=== PATIENT | female | born 1960 | race Caucasian/White ===

== ENCOUNTER 2017-05-06 20:49 | Emergency (ER) | payer MEDICAID ==
[2017-05-06 20:54] VITALS: BP 120/65
--- NOTE | 2017-05-06 21:20 | ED Physician Documentation ---
History of Present Illness - Stated complaint Stated Complaint: FOOT PX - Chief complaint Chief Complaint: Ext Problem - History obtained from History obtained from: Patient - History of Present Illness Timing: How many weeks ago (1) Pain level max: 6 Pain level now: 6 Improved by: walking boot Worsened by: walking - Additonal information Additional information: has had pain in the L foot/ankle for the past year. is supposed to be in a walking boot, but was not wearing it today. felt "3 cracks" and came to the ED. 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 : Other HEENT: Other Psych: None Musculoskeletal: Osteoarthritis Derm: None - Past Surgical History Past Surgical History: Yes General: Cholecystectomy, Appendectomy, Colonoscopy Ortho: Arthroscopic surgery, Carpal Tunnel surgery /DATA CONVERSION OPERATOR: Tubal ligation, Hysterectomy, Oophrectomy - Present Medications Home Medications: Ambulatory Orders Medication Instructions Recorded Confirmed Aspirin [Nell Chewable Aspirin] 81 mg PO DAILY 06/06/16 05/06/17 Naproxen 375 mg PO BID PRN #20 tablet 05/06/17 - Allergies Allergies/Adverse Reactions: Allergies Allergy/AdvReac Type Severity Reaction Status Date / Time ibuprofen Allergy Severe Hives Verified 05/06/17 20:55 baclofen Allergy Intermediate Rash Verified 05/06/17 20:55 cephalexin [Cephalexin] Allergy Intermediate Rash Verified 05/06/17 20:55 clarithromycin [From Biaxin] Allergy Intermediate Rash Verified 05/06/17 20:55 codeine [Codeine] Allergy Intermediate Rash Verified 05/06/17 20:55 Penicillins Allergy Intermediate Rash Verified 05/06/17 20:55 aspirin AdvReac Intermediate Nausea Verified 05/06/17 20:55 acetaminophen [From Vicodin] AdvReac Unknown Nausea Verified 05/06/17 20:55 hydrocodone bitartrate * AdvReac Unknown Nausea Verified 05/06/17 20:55 [From Vicodin] - Social History Does the pt smoke?: No Smoking Status: Former smoker Does the pt drink ETOH?: No Does the pt have substance abuse?: No - Immunizations Immunizations are current?: Yes - POLST Patient has POLST: No PD ED PE NORMAL - Vitals Vital signs reviewed: Yes - General General: Alert and oriented X 3, No acute distress - Derm Derm: Warm and dry - Extremities Extremities: Other (L ankle - diffuse TTP over the foot and ankle. NVI. No swelling. ) - Neuro Neuro: Alert and oriented X 3 - Psych Psych: Normal mood, Normal affect Results - Vitals Vitals: Vital Signs - 24 hr 05/06/17 20:51 Temperature 36.2 C L Heart Rate 81 Respiratory 18 Rate Blood Pressure 120/65 O2 Saturation 99 Oxygen O2 Source Room air - Rads (name of study) L ankle xray Radiology: Prelim report reviewed, EMP read contemporaneously, See rad report ( Ankle swelling. . No fracture. Normal alignment. ) L foot xray Radiology: Prelim report reviewed, EMP read contemporaneously, See rad report ( Healed fracture of the left second proximal phalanx diaphysis. No new fractures. . Normal soft tissue and alignment. ) PD MEDICAL DECISION MAKING - ED course Complexity details: reviewed results, re-evaluated patient, considered differential, d/w patient ED course: Patient is a 56-year-old female who presents to the emergency department with left foot and ankle pain. She does have a walking boot and is using this at home. Multiple medication allergies, but states that she can use Naprosyn. Will place her on this for home and follow-up with her doctor. No acute findings on x-ray. Patient counseled regarding signs and symptoms for which I believe and urgent re-evaluation would be necessary. Patient with good understanding of and agreement to plan and is comfortable going home at this time This document was made in part using voice recognition software. While efforts are made to proofread this document, sound alike and grammatical errors may occur. Departure - Departure Disposition: 01 Home, Self Care Clinical Impression: Left ankle sprain Qualifiers: Encounter type: initial encounter Involved ligament of ankle: unspecified ligament Qualified Code(s): S93.402A - Sprain of unspecified ligament of left ankle, initial encounter Condition: Good Instructions: ED Sprain Ankle W X Ray Follow-Up: Edilberto Goetz MD [Primary Care Provider] - Within 1 week Prescriptions: Naproxen 375 mg PO BID PRN #20 tablet PRN Reason: ankle pain Comments: Your xrays are normal tonight. Continue to use your walking boot at home. This should improve over the next few days. Discharge Date/Time: 05/06/17 22:21
--- NOTE | 2017-05-06 21:59 | XRAY Preliminary Report ---
Exam: XR Ankle 3 View LT IMPRESSION: 1. Ankle swelling. 2. No fracture. Normal alignment. [facility] SITE ID: [id number]
--- NOTE | 2017-05-06 22:01 | XRAY Preliminary Report ---
Exam: XR Foot 3 View LT IMPRESSION: 1. Healed fracture of the left second proximal phalanx diaphysis. No new fractures. 2. Normal soft tissue malalignment. [facility] SITE ID: [id number]
--- NOTE | 2017-05-06 22:02 | XRAY Report ---
EXAM: LEFT ANKLE RADIOGRAPHY EXAM DATE: 05/06/2017 09:49 PM. CLINICAL HISTORY: L ankle pain s/p fall. COMPARISON: None. TECHNIQUE: 3 views. FINDINGS: Bones: Normal. No fractures or bone lesions. Joints: Normal. No effusion. No subluxations. The ankle mortise is normally aligned. Soft Tissues: Ankle swelling noted. IMPRESSION: 1. Ankle swelling. 2. No fracture. Normal alignment. [facility] Referring Provider Line: [phone] SITE ID: [id number]
--- NOTE | 2017-05-06 22:06 | XRAY Report ---
EXAM: LEFT FOOT RADIOGRAPHY EXAM DATE: 05/06/2017 09:50 PM. CLINICAL HISTORY: Left foot pain status post fall. COMPARISON: 03/23/2016. TECHNIQUE: 3 views. FINDINGS: Bones: Healed fracture of the proximal left second phalanx diaphysis. No new fractures are noted. Joints: Normal. No subluxations. Soft Tissues: Normal. No soft tissue swelling. IMPRESSION: 1. Healed fracture of the left second proximal phalanx diaphysis. No new fractures. 2. Normal soft tissue and alignment. [facility] Referring Provider Line: [phone] SITE ID: [id number]
[2017-05-06] MEDS ORDERED: NAPROXEN 250 MG TABLET PO STA (22:09)
[2017-05-06] MEDS ORDERED: NAPROXEN 250 MG TABLET PO ONE ×2 (22:10→22:11)
== END 2017-05-06 22:21 | disposition home or self-care (01) ==
LOC: ED 20:49
DX: S93.402A Sprain of unspecified ligament of left ankle, initial encounter (principal); X58.XXXA Exposure to other specified factors, initial encounter; Z87.891 Personal history of nicotine dependence; Z79.82 Long term (current) use of aspirin
CPT/HCPCS: 73610; 73630; 99282; 99283; A9270

== ENCOUNTER 2017-06-29 20:52 | Emergency (ER) | payer MEDICAID ==
[2017-06-29 21:04] VITALS: BP 106/68
[2017-06-29] MEDS ORDERED: NAPROXEN 250 MG TABLET PO STA (22:13)
--- NOTE | 2017-06-29 22:14 | ED Physician Documentation ---
History of Present Illness - Stated complaint Stated Complaint: RIB PX - Chief complaint Chief Complaint: General - History obtained from History obtained from: Patient, Friend - History of Present Illness Timing: How many days ago (3) Pain level max: 8 Pain level now: 8 Improved by: rest Worsened by: movement, palpation - Additonal information Additional information: Patient is a 56-year-old female who presents to the emergency department with right rib pain after moving laundry the other day. States saw her PCP and was prescribed Flexeril, but this is not helping. No dyspnea. No cough. Feels that there is swelling in that area now. 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 : Other HEENT: Other Psych: None Musculoskeletal: Osteoarthritis Derm: None - Past Surgical History Past Surgical History: Yes General: Cholecystectomy, Appendectomy, Colonoscopy Ortho: Arthroscopic surgery, Carpal Tunnel surgery /ULTRASONIC HAND SOLDERER: Tubal ligation, Hysterectomy, Oophrectomy - Present Medications Home Medications: Ambulatory Orders Medication Instructions Recorded Confirmed Cyclobenzaprine HCl 5 mg PO QPM PRN 06/29/17 06/29/17 Naproxen [Naprosyn] 500 mg PO BID PRN #30 tablet 06/29/17 - Allergies Allergies/Adverse Reactions: Allergies Allergy/AdvReac Type Severity Reaction Status Date / Time ibuprofen Allergy Severe Hives Verified 06/29/17 21:04 baclofen Allergy Intermediate Rash Verified 06/29/17 21:04 cephalexin [Cephalexin] Allergy Intermediate Rash Verified 06/29/17 21:04 clarithromycin [From Biaxin] Allergy Intermediate Rash Verified 06/29/17 21:04 codeine [Codeine] Allergy Intermediate Rash Verified 06/29/17 21:04 Penicillins Allergy Intermediate Rash Verified 06/29/17 21:04 aspirin AdvReac Intermediate Nausea Verified 06/29/17 21:04 acetaminophen [From Vicodin] AdvReac Unknown Nausea Verified 06/29/17 21:04 hydrocodone bitartrate * AdvReac Unknown Nausea Verified 06/29/17 21:04 [From Vicodin] - Social History Does the pt smoke?: No Smoking Status: Former smoker Does the pt drink ETOH?: No Does the pt have substance abuse?: No - Immunizations Immunizations are current?: Yes - POLST Patient has POLST: No PD ED PE NORMAL - Vitals Vital signs reviewed: Yes - General General: Alert and oriented X 3, No acute distress - HEENT HEENT: Moist mucous membranes - Neck Neck: Supple, no meningeal sign - Cardiac Cardiac: RRR, Strong equal pulses - Respiratory Respiratory: No respiratory distress, Clear bilaterally, Other (TTP R ribs 10-12 , anterior aspect. ) - Back Back: No spinal TTP - Derm Derm: Warm and dry - Neuro Neuro: Alert and oriented X 3 - Psych Psych: Normal mood, Normal affect Results - Vitals Vitals: Vital Signs - 24 hr 06/29/17 21:00 Temperature 36.4 C L Heart Rate 82 Respiratory 16 Rate Blood Pressure 106/68 O2 Saturation 99 Oxygen O2 Source Room air - Rads (name of study) R ribs with CXR Radiology: Prelim report reviewed, EMP read contemporaneously, See rad report ( normal) PD MEDICAL DECISION MAKING - ED course Complexity details: reviewed results, re-evaluated patient, considered differential, d/w patient ED course: Patient is a 56-year-old female who presents to the emergency department with right-sided rib pain. No acute findings on x-ray. Given Naprosyn and this helped her pain. She is well-appearing, nontoxic. Afebrile. No pneumothorax. No hemothorax. We will continue supportive care and follow-up with her doctor. Patient counseled regarding signs and symptoms for which I believe and urgent re-evaluation would be necessary. Patient with good understanding of and agreement to plan and is comfortable going home at this time This document was made in part using voice recognition software. While efforts are made to proofread this document, sound alike and grammatical errors may occur. Departure - Departure Disposition: 01 Home, Self Care Clinical Impression: Contusion of rib on right side Qualifiers: Encounter type: initial encounter Qualified Code(s): S20.211A - Contusion of right front wall of thorax, initial encounter Condition: Good Instructions: ED Contusion Vs Minor Fx Rib Follow-Up: Edilberto Goetz MD [Primary Care Provider] - Within 1 week Prescriptions: Naproxen [Naprosyn] 500 mg PO BID PRN #30 tablet PRN Reason: rib pain Comments: Return if you worsen. This should improve over the next week. Discharge Date/Time: 06/29/17 23:08
[2017-06-29] MEDS ORDERED: NAPROXEN 250 MG TABLET PO ONE (22:18)
--- NOTE | 2017-06-29 22:56 | XRAY Preliminary Report ---
Exam: XR Ribs w/PA Chest RT IMPRESSION: Negative chest and right ribs. [facility] SITE ID: [id number]
--- NOTE | 2017-06-29 22:59 | XRAY Report ---
EXAM: RIGHT RIB RADIOGRAPHY EXAM DATE: 06/29/2017 10:36 PM. CLINICAL HISTORY: R sided rib pain. COMPARISON: 06/06/2016. TECHNIQUE: 1 view of the chest and 2 views of the ribs. FINDINGS: Bones: Normal. No fracture or bone lesion. Lungs: No focal opacities. No pneumothorax. No pleural effusions. Mediastinum: Heart and mediastinal contours are unremarkable. Other: None. IMPRESSION: Negative chest and right ribs. [facility] Referring Provider Line: [phone] SITE ID: [id number]
== END 2017-06-29 23:08 | disposition home or self-care (01) ==
LOC: ED 20:52
DX: S20.211A Contusion of right front wall of thorax, initial encounter (principal); X58.XXXA Exposure to other specified factors, initial encounter; Y93.89 Activity, other specified; Z87.891 Personal history of nicotine dependence
CPT/HCPCS: 71101; 99283; A9270

== ENCOUNTER 2017-08-14 20:21 | Emergency (ER) | payer MEDICAID ==
[2017-08-14 20:27] VITALS: BP 132/83
[2017-08-14] MEDS ORDERED: oxyCOD/ACETAMIN 5 MG/325 MG TABLET PO STA (20:35)
--- NOTE | 2017-08-14 20:36 | ED Physician Documentation ---
PD HPI LOWER EXT INJURY - Stated complaint Stated Complaint: LT FOOT INJ - Chief complaint Chief Complaint: Ext Problem - History obtained from History obtained from: Patient - History of Present Illness PD HPI LOW EXT INJURY LOCATION: Other (Her friend's dog leash wrapped around her ankle yesterday and pulled her and she fell and she felt popping in the left ankle and is now unable to walk or bear weight. 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 : Other HEENT: Other Psych: None Musculoskeletal: Osteoarthritis Derm: None - Past Surgical History Past Surgical History: Yes General: Cholecystectomy, Appendectomy, Colonoscopy Ortho: Arthroscopic surgery, Carpal Tunnel surgery /CUTTING MACHINE TENDER: Tubal ligation, Hysterectomy, Oophrectomy - Present Medications Home Medications: Ambulatory Orders Medication Instructions Recorded Confirmed Cyclobenzaprine HCl 5 mg PO QPM PRN 06/29/17 06/29/17 Naproxen [Naprosyn] 500 mg PO BID PRN #30 tablet 06/29/17 Naproxen 375 mg PO BID PRN #15 tablet 08/14/17 - Allergies Allergies/Adverse Reactions: Allergies Allergy/AdvReac Type Severity Reaction Status Date / Time ibuprofen Allergy Severe Hives Verified 06/29/17 21:04 baclofen Allergy Intermediate Rash Verified 06/29/17 21:04 cephalexin [Cephalexin] Allergy Intermediate Rash Verified 06/29/17 21:04 clarithromycin [From Biaxin] Allergy Intermediate Rash Verified 06/29/17 21:04 codeine [Codeine] Allergy Intermediate Rash Verified 06/29/17 21:04 Penicillins Allergy Intermediate Rash Verified 06/29/17 21:04 aspirin AdvReac Intermediate Nausea Verified 06/29/17 21:04 acetaminophen [From Vicodin] AdvReac Unknown Nausea Verified 06/29/17 21:04 hydrocodone bitartrate * AdvReac Unknown Nausea Verified 06/29/17 21:04 [From Vicodin] - Social History Does the pt smoke?: No Smoking Status: Never smoker Does the pt drink ETOH?: No Does the pt have substance abuse?: No - Immunizations Immunizations are current?: Yes - POLST Patient has POLST: No PD ED PE NORMAL - Vitals Vital signs reviewed: Yes - General General: Alert and oriented X 3, No acute distress - Extremities Extremities: Other (Left ankle: Mild tenderness over the lateral malleolus and more so over the ATFL and proximal fifth metatarsal, also some over the calcaneus, there is no proximal fibular tenderness. No deformity or swelling. Normal pedal pulses and sensation.) - Neuro Neuro: Alert and oriented X 3, Normal speech - Psych Psych: Normal mood, Normal affect Results - Vitals Vitals: Vital Signs - 24 hr 08/14/17 20:23 Temperature 36.8 C Heart Rate 81 Respiratory 16 Rate Blood Pressure 132/83 H O2 Saturation 100 Oxygen O2 Source Room air - Rads (name of study) Straight left ankle and left foot Radiology: EMP read contemporaneously (normal) Departure - Departure Disposition: 01 Home, Self Care Clinical Impression: Left ankle sprain Qualifiers: Encounter type: initial encounter Involved ligament of ankle: anterior talofibular ligament Qualified Code(s): S93.492A - Sprain of other ligament of left ankle, initial encounter Sprain of left foot Qualifiers: Encounter type: initial encounter Qualified Code(s): S93.602A - Unspecified sprain of left foot, initial encounter Condition: Good Record reviewed to determine appropriate education?: Yes Instructions: ED Sprain Ankle W X Ray Prescriptions: Naproxen 375 mg PO BID PRN #15 tablet PRN Reason: Pain Comments: Recheck with your doctor in 1 week if not better. Return if worse. Your blood pressure was elevated today on check into the emergency department. This does not mean that you have hypertension, it is a common phenomenon to come to the emergency department and have elevated blood pressure. I recommend that you see your primary care physician within the week to have it rechecked when you are feeling better. Discharge Date/Time: 08/14/17 21:10
[2017-08-14] MEDS ORDERED: HYDROcod/ACETAM 5/325 MG TABLET ONE (20:43)
[2017-08-14] MEDS ORDERED: oxyCOD/ACETAMIN 5 MG/325 MG TABLET PO ONE (20:45)
[2017-08-14] MEDS ORDERED: oxyCODONE/ACET 5/325 Prepack 4 PO STA (21:02)
[2017-08-14] MEDS ORDERED: oxyCODONE/ACET 5/325 Prepack 4 PO ONE (21:10)
--- NOTE | 2017-08-14 21:11 | XRAY Preliminary Report ---
Exam: XR ANKLE 3 VIEW LT IMPRESSION: No evidence of fracture or dislocation. [facility] SITE ID: [id number]
--- NOTE | 2017-08-14 21:12 | XRAY Preliminary Report ---
Exam: XR FOOT 3 VIEW LT IMPRESSION: No evidence of fracture or dislocation. [facility] SITE ID: [id number]
--- NOTE | 2017-08-14 21:13 | XRAY Report ---
EXAM: LEFT ANKLE RADIOGRAPHY EXAM DATE: 08/14/2017 08:53 PM. CLINICAL HISTORY: Foot/ankle inj. COMPARISON: None. TECHNIQUE: 3 views. FINDINGS: Bones: No fracture or focal bony lesion. Joints: No evidence of dislocation. Soft Tissues: No unexpected soft tissue findings. IMPRESSION: No evidence of fracture or dislocation. [facility] Referring Provider Line: [phone] SITE ID: [id number]
--- NOTE | 2017-08-14 21:15 | XRAY Report ---
EXAM: LEFT FOOT RADIOGRAPHY EXAM DATE: 08/14/2017 08:53 PM. CLINICAL HISTORY: Foot pain COMPARISON: None. TECHNIQUE: 3 views. FINDINGS: Bones: No fracture or focal bony lesion. Joints: No evidence of dislocation. Soft Tissues: No unexpected soft tissue findings. IMPRESSION: No evidence of fracture or dislocation. [facility] Referring Provider Line: [phone] SITE ID: [id number]
== END 2017-08-14 21:10 | disposition home or self-care (01) ==
LOC: ED 20:21
DX: S93.492A Sprain of other ligament of left ankle, initial encounter (principal); S93.602A Unspecified sprain of left foot, initial encounter; W23.0XXA Caught, crushed, jammed, or pinched between moving objects, initial encounter; W22.8XXA Striking against or struck by other objects, initial encounter; R03.0 Elevated blood-pressure reading, without diagnosis of hypertension
CPT/HCPCS: 73610; 73630; 99283; A9270

== ENCOUNTER 2017-09-13 18:13 | Emergency (ER) | payer MEDICAID ==
[2017-09-13] MEDS ORDERED: CYCLOBENZAPRINE 10 MG TABLET PO STA (20:08)
[2017-09-13] MEDS ORDERED: KETOROLAC 60 MG/2 ML VIAL IM STA (20:08)
[2017-09-13] MEDS ORDERED: KETOROLAC 60 MG/2 ML VIAL ONE (20:15)
[2017-09-13] MEDS ORDERED: CYCLOBENZAPRINE 10 MG TABLET PO ONE (20:15)
--- NOTE | 2017-09-13 20:18 | ED Physician Documentation ---
PD HPI LOWER EXT INJURY - Stated complaint Stated Complaint: BILAT LEG PX - Chief complaint Chief Complaint: Ext Problem - History obtained from History obtained from: Patient, Friend - History of Present Illness PD HPI LOW EXT INJURY LOCATION: Both, Lower leg Where injury occurred: Home Timing - onset: Chronic Timing - details: Gradual onset, Still present Improved by: Rest, Immobilization Worsened by: Moving, Palpating Associated symptoms: No: Weakness, Numbness, Swelling Contributing factors: No: Anticoagulated, Prosthetic joint Similar symptoms before: No diagnosis Recently seen: Not recently seen - Additional information Additional information: patient is a 57 year old female with a history of chronic pain who is presenting to the emergency department for leg pain. patient states that it is in both legs and it feels like it is knotting up. Patient states that she has a follow up with her physician next week but she needed to come in to be seen today. patient denies any trauma or any neurological deficits. Review of Systems Constitutional: denies: Fever, Chills Eyes: denies: Decreased vision, Photophobia Ears: reports: Reviewed and negative Nose: reports: Reviewed and negative Throat: reports: Reviewed and negative Cardiac: denies: Chest pain / pressure, Pedal edema, Calf pain Respiratory: denies: Dyspnea, Cough GI: reports: Reviewed and negative : denies: Unable to Void, Incontinent Musculoskeletal: reports: Extremity pain, Joint pain. 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 : Other HEENT: Other Psych: None Musculoskeletal: Osteoarthritis Derm: None - Past Surgical History Past Surgical History: Yes General: Colonoscopy Ortho: Arthroscopic surgery, Carpal Tunnel surgery /LEATHER STITCHER: Hysterectomy, Oophrectomy - Present Medications Home Medications: Ambulatory Orders Medication Instructions Recorded Confirmed Cyclobenzaprine HCl 5 mg PO QPM PRN 06/29/17 06/29/17 Naproxen [Naprosyn] 500 mg PO BID PRN #30 tablet 06/29/17 Naproxen 375 mg PO BID PRN #15 tablet 08/14/17 Cyclobenzaprine [Flexeril] 10 mg PO TID PRN #10 tablet 09/13/17 - Allergies Allergies/Adverse Reactions: Allergies Allergy/AdvReac Type Severity Reaction Status Date / Time ibuprofen Allergy Severe Hives Verified 09/13/17 18:20 baclofen Allergy Intermediate Rash Verified 09/13/17 18:20 cephalexin [Cephalexin] Allergy Intermediate Rash Verified 09/13/17 18:20 clarithromycin [From Biaxin] Allergy Intermediate Rash Verified 09/13/17 18:20 codeine [Codeine] Allergy Intermediate Rash Verified 09/13/17 18:20 Penicillins Allergy Intermediate Rash Verified 09/13/17 18:20 aspirin AdvReac Intermediate Nausea Verified 09/13/17 18:20 acetaminophen [From Vicodin] AdvReac Unknown Nausea Verified 09/13/17 18:20 hydrocodone bitartrate * AdvReac Unknown Nausea Verified 09/13/17 18:20 [From Vicodin] - Social History Does the pt smoke?: No Smoking Status: Never smoker Does the pt drink ETOH?: No Does the pt have substance abuse?: No - Immunizations Immunizations are current?: Yes - POLST Patient has POLST: No PD ED PE NORMAL - Vitals Vital signs reviewed: Yes - General General: Alert and oriented X 3, No acute distress - HEENT HEENT: Atraumatic, PERRL, Moist mucous membranes - Neck Neck: Supple, no meningeal sign - Cardiac Cardiac: RRR, No murmur - Respiratory Respiratory: No respiratory distress - Abdomen Abdomen: Non distended - Derm Derm: Normal color, Warm and dry, No rash - Extremities Extremities: Normal ROM s pain, No edema - Neuro Neuro: Alert and oriented X 3, No motor deficit, No sensory deficit, Normal speech Eye Opening: Spontaneous Motor: Obeys Commands Verbal: Oriented GCS Score: 15 - Psych Psych: Normal mood PD ED PE EXPANDED - Extremities Extremities: Tenderness (mild tenderness to palpation, diffusely without gross deformity. ). No: Swelling, Bruising, Abrasion, Laceration Results - Vitals Vitals: Vital Signs - 24 hr 09/13/17 09/13/17 18:17 20:27 Temperature 36 C L 36.3 C L Heart Rate 80 70 Respiratory 18 18 Rate Blood Pressure 113/60 107/64 O2 Saturation 100 100 Oxygen O2 Source Room air PD MEDICAL DECISION MAKING - ED course Complexity details: reviewed old records, reviewed results, re-evaluated patient , considered differential, d/w patient ED course: Patient was seen and examined at bedside. patient was well appearing and in no distress. patient was treated with ibuprofen and flexeril. There was no indication for imaging at this time. Patient was stable for discharge with outpatient follow up. Departure - Departure Disposition: 01 Home, Self Care Clinical Impression: Muscle spasm Condition: Good Instructions: ED Spasm Muscle Follow-Up: Edilberto Goetz MD [Primary Care Provider] - Within 1 week Prescriptions: Cyclobenzaprine [Flexeril] 10 mg PO TID PRN #10 tablet PRN Reason: Spasms Comments: Your symptoms today are likely secondary to muscle spasms. It is important that you stay well hydrated and that you also drink some gatorade and other electrolyte solutions. You cant take tylenol as needed for pain and flexeril for muscle spams. You should go to your follow up appointment with your doctor next week. You can return to the emergency department at any time if necessary for new, worsening or uncontrollable symptoms. Discharge Date/Time: 09/13/17 20:27
[2017-09-13 20:28] VITALS: BP 107/64
== END 2017-09-13 20:27 | disposition home or self-care (01) ==
LOC: ED 18:13
DX: M62.838 Other muscle spasm (principal); G89.29 Other chronic pain
CPT/HCPCS: 96372; 99283; A9270

== ENCOUNTER 2017-09-18 11:01 | Outpatient (CLI) | payer MEDICAID ==
[2017-09-18 19:02] LABS: BASOPHILS % (AUTO) 0.6 %; EOSINOPHILS # (AUTO) 0.1 10^3/uL (0.0-0.7); EOSINOPHILS % (AUTO) 0.8 %; HCT - HEMATOCRIT 38.6 % (37.0-47.0); HGB - HEMOGLOBIN 12.9 g/dL (12.0-16.0); LYMPHOCYTES # (AUTO) 2.7 10^3/uL (1.5-3.5); LYMPHOCYTES % (AUTO) 40.7 %; MEAN CORPUSCULAR HEMOGLOBIN 30.5 pg (27.0-31.0); MEAN CORPUSCULAR HGB CONC 33.5 g/dL (32.0-36.0); MEAN PLATELET VOLUME 9.9 fL (7.9-10.8); MONOCYTES # (AUTO) 0.3 10^3/uL (0.0-1.0); MONOCYTES % (AUTO) 4.5 %; NEUTROPHILS # (AUTO) 3.5 10^3/uL (1.5-6.6); NEUTROPHILS % (AUTO) 53.4 %; RED BLOOD COUNT 4.24 10^6/uL (4.20-5.40); UNCORRECTED WHITE BLOOD COUNT 6.6 x10^3/uL; WHITE BLOOD COUNT 6.6 x10^3/uL (4.8-10.8)
[2017-09-18 19:23] LABS: ALBUMIN/GLOBULIN RATIO 1.3 (1.0-2.2); BILIRUBIN,TOTAL 0.4 mg/dL (0.2-1.0); CALCIUM 8.7 mg/dL (8.5-10.3); CREATININE 0.5 mg/dL (0.4-1.0); POTASSIUM 3.6 mmol/L (3.5-5.0); TOTAL PROTEIN 7.2 g/dL (6.7-8.2)
== END 2017-09-18 11:02 | disposition home or self-care (01) ==
LOC: LAB.N 11:01
PROVIDERS: ATTEND Family Medicine
DX: M79.605 Pain in left leg (principal)
CPT/HCPCS: 36415; 80053; 82550; 85025; 85651

== ENCOUNTER 2017-12-31 08:00 | Outpatient (CLI) | payer MEDICAID ==
[2017-12-31 19:27] LABS: BASOPHILS % (AUTO) 0.4 %; EOSINOPHILS % (AUTO) 0.2 %; HGB - HEMOGLOBIN 13.3 g/dL (12.0-16.0); LYMPHOCYTES # (AUTO) 3.3 10^3/uL (1.5-3.5); LYMPHOCYTES % (AUTO) 31.5 %; MEAN CORPUSCULAR HEMOGLOBIN 29.8 pg (27.0-31.0); MEAN CORPUSCULAR HGB CONC 33.1 g/dL (32.0-36.0); MEAN CORPUSCULAR VOLUME 89.9 fL (81.0-99.0); MEAN PLATELET VOLUME 10.2 fL (7.9-10.8); MONOCYTES # (AUTO) 0.4 10^3/uL (0.0-1.0); MONOCYTES % (AUTO) 3.4 %; NEUTROPHILS # (AUTO) 6.7 10^3/uL (1.5-6.6); NEUTROPHILS % (AUTO) 64.5 %; PLT - PLATELET COUNT 244 10^3/uL (130-450); RED BLOOD COUNT 4.48 10^6/uL (4.20-5.40); RED CELL DISTRIBUTION WIDTH 13.7 % (12.0-15.0); WHITE BLOOD COUNT 10.4 x10^3/uL (4.8-10.8)
[2017-12-31 19:29] LABS: ALBUMIN 4.4 g/dL (3.2-5.5); ALBUMIN/GLOBULIN RATIO 1.5 (1.0-2.2); BILIRUBIN,TOTAL 0.3 mg/dL (0.2-1.0); CALCIUM 9.2 mg/dL (8.5-10.3); CREATININE 0.6 mg/dL (0.4-1.0); TOTAL PROTEIN 7.3 g/dL (6.7-8.2)
== END 2017-12-31 08:01 | disposition home or self-care (01) ==
LOC: LAB.N 08:00
PROVIDERS: ATTEND Family Medicine
DX: Z00.00 Encounter for general adult medical examination without abnormal findings (principal); M79.605 Pain in left leg
CPT/HCPCS: 36415; 80053; 82550; 85025

== ENCOUNTER 2018-03-30 14:30 | Emergency (ER) | payer MEDICAID ==
[2018-03-30] MEDS ORDERED: DEXAMETHASONE 10 MG/ML VIAL PO STA (15:23)
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
--- NOTE | 2018-03-30 16:33 | XRAY Report ---
EXAM: LUMBOSACRAL SPINE RADIOGRAPHY EXAM DATE: 03/30/2018 03:48 PM. CLINICAL HISTORY: Back pain. COMPARISONS: 06/06/2016. TECHNIQUE: 3 views. FINDINGS: Alignment: No spondylolisthesis or scoliosis. Bones: Five all-pfr-rfsztkp lumbar vertebral bodies are present. No fractures or bone lesions. Disks: Normal. Disk heights are relatively well preserved. Facets: Mild lower lumbar facet arthrosis. Sacroiliac Joints: Unremarkable. Soft Tissues: Unremarkable. Right upper quadrant clips. IMPRESSION: No acute osseus abnormality. Mild lower lumbar facet arthrosis. [facility] Referring Provider Line: [phone] SITE ID: [id number]
[2018-03-30 18:32] VITALS: BP 98/62
--- NOTE | 2018-03-30 18:54 | Ultrasound Report ---
EXAM: BILATERAL LOWER EXTREMITY VENOUS ULTRASOUND EXAM DATE: 03/30/2018 06:11 PM. CLINICAL HISTORY: Severe leg pain limited mobility. COMPARISON: None. TECHNIQUE: Real-time sonographic vascular imaging was performed by the harnessmaker apprentice through the lower extremities utilizing both color-flow and Doppler spectral analysis. Multiple sales representative electric service static i mages were saved for review. FINDINGS: Right: Common Femoral Vein (CFV): Normal. CFV-GSV Junction: Normal. Profunda Femoral Vein (PFV): Normal. Femoral Vein (FV) Prox: Normal. Femoral Vein (FV) Mid: Normal. Femoral Vein (FV) Dist: Normal. Popliteal Vein: Normal. Posterior Tibial Veins: Normal. Peroneal Veins: Normal. Left: Common Femoral Vein (CFV): Normal. CFV-GSV Junction: Normal. Profunda Femoral Vein (PFV): Normal. Femoral Vein (FV) Prox: Normal. Femoral Vein (FV) Mid: Normal. Femoral Vein (FV) Dist: Normal. Popliteal Vein: Normal. Posterior Tibial Veins: Normal. Peroneal Veins: Normal. Other: None. IMPRESSION: No evidence for deep venous thrombosis bilaterally. [facility] Referring Provider Line: [phone] SITE ID: [id number]
== END 2018-03-30 19:19 | disposition home or self-care (01) ==
LOC: ED 14:30
DX: R20.2 Paresthesia of skin (principal); M19.90 Unspecified osteoarthritis, unspecified site
CPT/HCPCS: 72100; 93970; 99283

== ENCOUNTER 2018-04-03 10:49 | Emergency (ER) | payer MEDICAID ==
[2018-04-03] MEDS ORDERED: MORPHINE IR 15 MG TABLET PO STA (12:30)
--- NOTE | 2018-04-03 12:33 | ED Physician Documentation ---
History of Present Illness - Stated complaint Stated Complaint: BILAT LEG PX/GLF - Chief complaint Chief Complaint: Ext Problem - History obtained from History obtained from: Patient - History of Present Illness Timing: Other (She has chronic back pain but over the last 3 weeks has had progressive loss of sensation and pain to both legs which is new. She says she cannot feel either leg at this point and has had several falls related to same. She seen her physician and has a referral to I think a neurosurgeon but it is not until July. She has been taking naproxen and prednisone without relief. The pain is severe and focused in both thighs.) Review of Systems Ten Systems: 10 systems reviewed and negative Constitutional: denies: Fever, Chills Cardiac: denies: Chest pain / pressure, Palpitations Respiratory: denies: Dyspnea, Cough GI: denies: Abdominal Pain, Nausea, Vomiting PD PAST MEDICAL HISTORY - Past Medical History Past Medical History: Yes Cardiovascular: None Respiratory: None Endocrine/Autoimmune: None GI: Other SCREENING NURSE: None : Other HEENT: Other Psych: None Musculoskeletal: Osteoarthritis Derm: None - Past Surgical History Past Surgical History: Yes General: Colonoscopy Ortho: Arthroscopic surgery, Carpal Tunnel surgery /SCREENING NURSE: Hysterectomy, Oophrectomy - Present Medications Home Medications: Ambulatory Orders Medication Instructions Recorded Confirmed Gabapentin [Gabapentin] 1 cap PO DAILY 03/30/18 03/30/18 predniSONE [Deltasone] 20 mg PO [id number] #21 tab 03/30/18 Morphine Ir [Ms Ir] 15 mg PO Q6H PRN #10 tablet 04/03/18 - Allergies Allergies/Adverse Reactions: Allergies Allergy/AdvReac Type Severity Reaction Status Date / Time ibuprofen Allergy Severe Hives Verified 03/30/18 14:36 baclofen Allergy Intermediate Rash Verified 03/30/18 14:36 cephalexin [Cephalexin] Allergy Intermediate Rash Verified 03/30/18 14:36 clarithromycin [From Biaxin] Allergy Intermediate Rash Verified 03/30/18 14:36 codeine [Codeine] Allergy Intermediate Rash Verified 03/30/18 14:36 Penicillins Allergy Intermediate Rash Verified 03/30/18 14:36 aspirin AdvReac Intermediate Nausea Verified 03/30/18 14:36 acetaminophen [From Vicodin] AdvReac Unknown Nausea Verified 03/30/18 14:36 hydrocodone bitartrate * AdvReac Unknown Nausea Verified 03/30/18 14:36 [From Vicodin] - Social History Does the pt smoke?: No Smoking Status: Never smoker Does the pt drink ETOH?: No Does the pt have substance abuse?: No - Immunizations Immunizations are current?: Yes - POLST Patient has POLST: No PD ED PE NORMAL - Vitals Vital signs reviewed: Yes - General General: Alert and oriented X 3, Other (She is tearful and in pain) - HEENT HEENT: PERRL, EOMI - Neck Neck: Supple, no meningeal sign, No bony TTP - Cardiac Cardiac: RRR, No murmur - Respiratory Respiratory: No respiratory distress, Clear bilaterally - Abdomen Abdomen: Normal bowel sounds, Soft, Non tender - Back Back: No spinal TTP - Extremities Extremities: Other (She has basically absent sensation even to painful stimulus throughout the left leg and severely diminished sensation although still retains some response to painful stimulus in the right leg especially over the right lateral calf where the sensation is the best. She has hyper reflexes for both patella and Achilles. She has normal flexion-extension of the knee and ankle on the right, a little weak in extension of the knee on the left and very weak in dorsiflexion and plantar flexion on the left.) - Neuro Neuro: Alert and oriented X 3, Normal speech Results - Vitals Vitals: Vital Signs - 24 hr 04/03/18 04/03/18 11:06 13:51 Temperature 36.8 C 37.1 C Heart Rate 87 89 Respiratory 16 20 Rate Blood Pressure 108/59 L 110/80 O2 Saturation 99 99 Oxygen O2 Source Room air - Rads (name of study) MRI L spine Radiology: EMP read contemporaneously (1. Multilevel degenerative disk changes and facet arthropathy. 2. Moderate left L5-S1 subarticular zone stenosis. Mild left foraminal stenosis. 3. Small disk bulge at L4-L5. Mild foraminal stenoses. 4. Minimal disk bulge at L3-L4. Minimal canal narrowing. Dzht-ox-kqfjhqsi right and mild left foraminal stenoses. 5. Mild levoconvex scoliosis. ) PD MEDICAL DECISION MAKING - ED course ED course: 57-year-old woman with subacute back pain, but worsening symptoms that could be consistent with cauda equina and therefore MRI was done. She has multiple small areas of pathology but no evidence of cauda equina On MRI. - Sepsis Event Vital Signs: Vital Signs - 24 hr 04/03/18 04/03/18 11:06 13:51 Temperature 36.8 C 37.1 C Heart Rate 87 89 Respiratory 16 20 Rate Blood Pressure 108/59 L 110/80 O2 Saturation 99 99 Oxygen O2 Source Room air Departure - Departure Disposition: 01 Home, Self Care Clinical Impression: Lumbar radiculopathy Condition: Good Record reviewed to determine appropriate education?: Yes Instructions: ED Sciatica Prescriptions: Morphine Ir [Ms Ir] 15 mg PO Q6H PRN #10 tablet PRN Reason: Pain Comments: Call your doctor to arrange a follow-up appointment, make the next available appointment. In the interim, return anytime if worse or if new symptoms develop. Do not drink or drive while taking narcotic pain medication. Note that many narcotic pain relievers also contain Tylenol/acetaminophen. Please ensure that your total dose of acetaminophen from all sources does not exceed 3 g (3000 mg) per day. You may get constipated while on this medication. Take a stool softener such as Colace twice a day while you are on it. Also add an xwuh-fmh-uyqslwa laxative such as senna or MiraLAX on any day that you do not have a bowel movement. If you received a narcotic pain medication or sedative while in the emergency department, do not drive for the next 24 hours.
--- NOTE | 2018-04-03 16:11 | MRI Report ---
EXAM: MRI LUMBAR SPINE WITHOUT CONTRAST EXAM DATE: 04/03/2018 03:55 PM. CLINICAL HISTORY: Low back pain. Bilateral leg weakness. COMPARISON: Lumbar spine radiography from 03/30/2018. TECHNIQUE: Multiplanar, multisequence T1-weighted and fluid-sensitive sequences of the lumbar spine f rom T12 to S1 without contrast. Other: None. FINDINGS: Spinal Cord: The conus terminates at L1-L2. Small fibrolipoma of the filum terminale. The conus medul mena and cauda equina are unremarkable. Alignment: Mild levoconvex scoliosis. Bone Marrow: Five xig-hvz-nykavai lumbar vertebral bodies are assumed. No gross fractures or bone les ions. No bone marrow edema. Disk Levels/Facets: L5-S1: Mild facet arthropathy. Moderate left subarticular zone stenosis. Mild left foraminal stenosis . L4-L5: Small disk bulge. Mild facet arthropathy. Mild foraminal stenoses. No canal stenosis. L3-L4: Minimal disk bulge. Posterior annular fissure. Mild to moderate right facet arthropathy. Minim al canal narrowing. Eygo-uh-cfglchyi right and mild left foraminal stenoses. L2-L3: Tiny posterior annular fissure. No stenoses. L1-L2: Small posterior central disk protrusion with annular fissure. Mild canal stenosis. No foramina l stenoses. T12-L1: Unremarkable. Musculature: Normal. No edema or fatty atrophy. Other: The partially visualized retroperitoneum is unremarkable. IMPRESSION: 1. Multilevel degenerative disk changes and facet arthropathy. 2. Moderate left L5-S1 subarticular zone stenosis. Mild left foraminal stenosis. 3. Small disk bulge at L4-L5. Mild foraminal stenoses. 4. Minimal disk bulge at L3-L4. Minimal canal narrowing. Whwm-hg-pgnrlhkv right and mild left foramin al stenoses. 5. Mild levoconvex scoliosis. Comment: The following findings are so common in adults without low back pain that while we report th eir presence, they must be interpreted with caution and in the context of the clinical situation. (Re marc Núñez et al, Spine 2001) Prevalence of findings in patients without low back pain: Disk degeneration (any evidence): 92% Disk desiccation/T2 signal loss: 83% Disk height loss: 56% Disk bulge: 64% Disk protrusion: 32% Annular tear/high intensity zone: 38% [facility] Referring Provider Line: [phone] SITE ID: [id number]
[2018-04-03 16:25] VITALS: BP 122/81
== END 2018-04-03 16:20 | disposition home or self-care (01) ==
LOC: ED 10:49
DX: M54.16 Radiculopathy, lumbar region (principal); G89.29 Other chronic pain
CPT/HCPCS: 72148; 99283; A9270

== ENCOUNTER 2018-05-21 15:54 | Outpatient (CLI) | payer MEDICAID ==
--- NOTE | 2018-05-22 08:42 | XRAY Report ---
Procedure Date: 05/21/2018 Accession Number: [id number] / [id number] Procedure: XRN - Hand 3 View BILAT CPT Code: FULL RESULT: EXAM: Hand 3 View BILAT DATE: 05/21/2018 4:28 PM CLINICAL HISTORY: bilat hand pain COMPARISON: 12/16/2015. TECHNIQUE: 3 views each hand. FINDINGS: RIGHT: There is no fracture or dislocation. Degenerative changes about the carpometacarpal joints. LEFT: Changes of prior trapezium resection are again seen. Question chronic nonunion of an old fracture of the trapezoid. There is no acute fracture or dislocation. IMPRESSION: Left trapezium resection with associated degenerative changes. Question chronic nonunion of old left trapezoid fracture. [facility]
--- NOTE | 2018-05-22 08:53 | XRAY Report ---
Procedure Date: 05/21/2018 Accession Number: [id number] / [id number] Procedure: XRN - Wrist 3 View BILAT CPT Code: FULL RESULT: EXAM: Wrist 3 View BILAT DATE: 05/21/2018 4:28 PM CLINICAL HISTORY: WRIST PAIN,LEFT,RIGHT, HAND PAIN RIGHT COMPARISON: None. TECHNIQUE: 3 views of each hand and wrist. FINDINGS: RIGHT: Bones: Normal. No fractures or bone lesions in the hand or wrist. Joints: Mild degenerative changes predominantly about the first carpometacarpal joint. Soft Tissues: Normal. No soft tissue swelling. LEFT: Bones: Stable appearance status post trapezium resection. No new fracture or dislocation. Associated degenerative changes are again seen. Joints: Degenerative changes are similar to 2016. Soft Tissues: Normal. No soft tissue swelling. IMPRESSION: Status post left trapezium resection. Overall stable appearance compared to 2016. [facility]
== END 2018-05-21 15:55 | disposition home or self-care (01) ==
LOC: DI.N 15:54
PROVIDERS: ATTEND Family Medicine
DX: M19.042 Primary osteoarthritis, left hand (principal); M19.041 Primary osteoarthritis, right hand; M18.11 Unilateral primary osteoarthritis of first carpometacarpal joint, right hand; M19.032 Primary osteoarthritis, left wrist

== ENCOUNTER 2018-06-14 14:20 | Emergency (ER) | payer MEDICAID ==
[2018-06-14 14:36] VITALS: BP 125/60
[2018-06-14] MEDS ORDERED: HYDROcod/ACETAM 5/325 MG TABLET PO STA (15:19)
--- NOTE | 2018-06-14 15:22 | ED Physician Documentation ---
History of Present Illness - Stated complaint Stated Complaint: L RIB PX - Chief complaint Chief Complaint: General - History obtained from History obtained from: Patient, Family - History of Present Illness Timing: How many weeks ago (1) Pain level max: 8 Pain level now: 6 - Additonal information Additional information: L sided rib pain s/p reaching for a glass of water. States saw PCP, placed on flexeril and states not helping. Worse with movement and palpation. Worse with deep breath. Better with rest. 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: None : Other HEENT: Other Psych: None Musculoskeletal: Osteoarthritis Derm: None - Past Surgical History Past Surgical History: Yes General: Colonoscopy Ortho: Arthroscopic surgery, Carpal Tunnel surgery /ASSOCIATE PROFESSOR OF RADIOLOGY: Hysterectomy, Oophrectomy - Present Medications Home Medications: Ambulatory Orders Medication Instructions Recorded Confirmed Gabapentin [Gabapentin] 1 cap PO DAILY 03/30/18 03/30/18 Cyclobenzaprine [Flexeril] 10 mg PO TID PRN 06/14/18 06/14/18 Hydrocodone/Acetaminophen 1 - 2 each PO Q6H PRN #14 tablet 06/14/18 [Hydrocodon-Acetaminophen 5-325] - Allergies Allergies/Adverse Reactions: Allergies Allergy/AdvReac Type Severity Reaction Status Date / Time ibuprofen Allergy Severe Hives Verified 06/14/18 14:36 baclofen Allergy Intermediate Rash Verified 06/14/18 14:36 cephalexin [Cephalexin] Allergy Intermediate Rash Verified 06/14/18 14:36 clarithromycin [From Biaxin] Allergy Intermediate Rash Verified 06/14/18 14:36 codeine [Codeine] Allergy Intermediate Rash Verified 06/14/18 14:36 Penicillins Allergy Intermediate Rash Verified 06/14/18 14:36 aspirin AdvReac Intermediate Nausea Verified 06/14/18 14:36 acetaminophen [From Vicodin] AdvReac Unknown Nausea Verified 06/14/18 14:36 hydrocodone bitartrate * AdvReac Unknown Nausea Verified 06/14/18 14:36 [From Vicodin] - Social History Does the pt smoke?: No Smoking Status: Never smoker Does the pt drink ETOH?: No Does the pt have substance abuse?: No - Immunizations Immunizations are current?: Yes - POLST Patient has POLST: No PD ED PE NORMAL - Vitals Vital signs reviewed: Yes - General General: Alert and oriented X 3, No acute distress - HEENT HEENT: Moist mucous membranes - Neck Neck: Supple, no meningeal sign - Cardiac Cardiac: RRR - Respiratory Respiratory: No respiratory distress, Clear bilaterally - Abdomen Abdomen: Soft, Non tender, Non distended - Derm Derm: Warm and dry - Neuro Neuro: Alert and oriented X 3 - Psych Psych: Normal mood, Normal affect - Free text exam Free text exam: TTP over L chest wall, approx ribs 6-10. No crepitus. no ecchymosis. Results - Vitals Vitals: Vital Signs - 24 hr 06/14/18 14:33 Temperature 36.8 C Heart Rate 102 H Respiratory 16 Rate Blood Pressure 125/60 O2 Saturation 94 Oxygen O2 Source Room air - Rads (name of study) L rib xray with chest Radiology: Prelim report reviewed, EMP read contemporaneously, See rad report ( No displaced fractures) PD MEDICAL DECISION MAKING - ED course Complexity details: reviewed results, re-evaluated patient, considered differential, d/w patient, d/w family ED course: Patient is a 57-year-old female with what appears to be left rib contusions versus minor nondisplaced fractures. Pain well controlled. Will place on pain medication for home. No pneumothorax or hemothorax. We will have her follow- up closely with her doctor for further care. Patient counseled regarding signs and symptoms for which I believe and urgent re-evaluation would be necessary. Patient with good understanding of and agreement to plan and is comfortable going home at this time This document was made in part using voice recognition software. While efforts are made to proofread this document, sound alike and grammatical errors may occur. - Sepsis Event Vital Signs: Vital Signs - 24 hr 06/14/18 14:33 Temperature 36.8 C Heart Rate 102 H Respiratory 16 Rate Blood Pressure 125/60 O2 Saturation 94 Oxygen O2 Source Room air Departure - Departure Disposition: 01 Home, Self Care Clinical Impression: Contusion of rib on left side Qualifiers: Encounter type: initial encounter Qualified Code(s): S20.212A - Contusion of left front wall of thorax, initial encounter Condition: Good Instructions: ED Contusion Vs Minor Fx Rib Follow-Up: Edilberto Goetz MD [Primary Care Provider] - Within 1 week Prescriptions: Hydrocodone/Acetaminophen [Hydrocodon-Acetaminophen 5-325] 1 - 2 each PO Q6H PRN #14 tablet PRN Reason: pain Comments: Return if you worsen. Your x-rays are normal today, but there may be a small nondisplaced fracture that cannot be seen on x-ray. Continue your pain medications at home and follow-up with your doctor. Do not drink alcohol or drive while on narcotic pain medicine. Note that many narcotic pain relievers also contain tylenol/acetaminophen. Please ensure that your total dose of acetaminophen from all sources does not exceed 3 grams (3000mg) per day. You may constipated on this medication, take a stool softener such as "Colace" twice a day while you are on it. Also recommend a ljiv-izt-vciebqs laxative such as senna or MiraLAX any day that you do not have a bowel movement. If you received narcotic pain medication in the emergency department, do not drive or operate machinery for the next 24 hours. Discharge Date/Time: 06/14/18 17:01
--- NOTE | 2018-06-14 16:45 | XRAY Report ---
Procedure Date: 06/14/2018 Accession Number: [id number] / [id number] Procedure: XR - Ribs w/PA Chest LT CPT Code: FULL RESULT: EXAM: LEFT RIB RADIOGRAPHY EXAM DATE: 06/14/2018 04:18 PM. CLINICAL HISTORY: Rib pain. COMPARISON: None. TECHNIQUE: 1 view of the chest and 2 views of the ribs. FINDINGS: Bones: Normal. No fracture or bone lesion. Lungs: No focal opacities. No pneumothorax. No pleural effusions. Mediastinum: Heart and mediastinal contours are unremarkable. Other: None. IMPRESSION: No evidence of displaced fracture. [facility]
== END 2018-06-14 17:01 | disposition home or self-care (01) ==
LOC: ED 14:20
DX: S20.212A Contusion of left front wall of thorax, initial encounter (principal); X50.9XXA Other and unspecified overexertion or strenuous movements or postures, initial encounter
CPT/HCPCS: 71101; 99283; A9270

== ENCOUNTER → 2018-09-19 | Outpatient (CLI) | payer MEDICAID ==
[2018-09-19 13:38] LABS: BASOPHILS # (AUTO) 0.1 10^3/uL (0.0-0.1); BASOPHILS % (AUTO) 0.7 %; EOSINOPHILS % (AUTO) 0.3 %; HGB - HEMOGLOBIN 13.4 g/dL (12.0-16.0); LYMPHOCYTES # (AUTO) 2.4 10^3/uL (1.5-3.5); LYMPHOCYTES % (AUTO) 22.8 %; MEAN CORPUSCULAR HEMOGLOBIN 31.1 pg (27.0-31.0); MEAN CORPUSCULAR HGB CONC 34.8 g/dL (32.0-36.0); MEAN CORPUSCULAR VOLUME 89.6 fL (81.0-99.0); MEAN PLATELET VOLUME 10.3 fL (7.9-10.8); MONOCYTES # (AUTO) 0.4 10^3/uL (0.0-1.0); MONOCYTES % (AUTO) 3.6 %; NEUTROPHILS # (AUTO) 7.6 10^3/uL (1.5-6.6); NEUTROPHILS % (AUTO) 72.6 %; PLT - PLATELET COUNT 208 10^3/uL (130-450); RED BLOOD COUNT 4.29 10^6/uL (4.20-5.40); RED CELL DISTRIBUTION WIDTH 13.5 % (12.0-15.0); WHITE BLOOD COUNT 10.4 x10^3/uL (4.8-10.8)
[2018-09-19 13:43] LABS: ALBUMIN 4.1 g/dL (3.2-5.5); ALBUMIN/GLOBULIN RATIO 1.2 (1.0-2.2); ALKALINE PHOSPHATASE 71 IU/L (42-121); ALT ALANINE AMINOTRANSFERASE 14 IU/L (10-60); AST ASPARTATE AMINOTRANSFERASE 17 IU/L (10-42); BILIRUBIN,TOTAL 0.8 mg/dL (0.2-1.0); BUN - BLOOD UREA NITROGEN 9 mg/dL (6-20); CALCIUM 9.1 mg/dL (8.5-10.3); CARBON DIOXIDE - CO2 24 mmol/L (21-32); CHLORIDE 104 mmol/L (101-111); CHOLESTEROL 251 mg/dL; CREATININE 0.6 mg/dL (0.4-1.0); GFR - MDRD 103 (>89); GLUCOSE 106 mg/dL (70-100); HDL CHOLESTEROL 36 mg/dL; LDL CHOLESTEROL,CALCULATED 174 mg/dL; LDL/HDL RATIO 4.8 (<4.4); SODIUM 138 mmol/L (135-145); TOTAL PROTEIN 7.5 g/dL (6.7-8.2); VLDL CHOLESTEROL 41 mg/dL
== END ==
LOC: LAB.N 08:00
PROVIDERS: ATTEND Family Medicine
DX: Z51.81 Encounter for therapeutic drug level monitoring (principal); G89.4 Chronic pain syndrome; E55.9 Vitamin D deficiency, unspecified
CPT/HCPCS: 36415; 80053; 80061; 82306; 83721; 84443; 85025

== ENCOUNTER 2018-09-27 16:09 | Emergency (ER) | payer OTHER, MEDICAID ==
[2018-09-27 16:26] VITALS: BP 118/84
[2018-09-27] MEDS ORDERED: AZITHROMYCIN 250 MG TABLET PO STA (16:27)
[2018-09-27] MEDS ORDERED: cefTRIAXone 250 MG VIAL IM ONE (16:27)
[2018-09-27] MEDS ORDERED: LIDOCAINE 1% 2 ML VIAL SUBQ ONE (16:27)
[2018-09-27] MEDS ORDERED: metroNIDAZOLE 250 MG TABLET PO STA (16:27)
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
[2018-09-30 12:51] LABS: HIV AG/AB 4TH GEN NON-REACTIVE (NON-REACTIVE)
[2018-09-30 13:55] LABS: HEPATITIS A IGM NON-REACTIVE (NON-REACTIVE); HEPATITIS B CORE ANTIBODY IGM NON-REACTIVE (NON-REACTIVE); HEPATITIS B SURFACE ANTIGEN NON-REACTIVE (NON-REACTIVE); HEPATITIS C ANTIBODY NON-REACTIVE (NON-REACTIVE)
== END 2018-09-27 19:57 | disposition home or self-care (01) ==
LOC: ED 16:09
DX: T74.21XA Adult sexual abuse, confirmed, initial encounter (principal); S70.01XA Contusion of right hip, initial encounter; S30.814A Abrasion of vagina and vulva, initial encounter; Y07.59 Other non-family member, perpetrator of maltreatment and neglect
CPT/HCPCS: 0133C; 36415; 80074; 87389; A9270; 99282

== ENCOUNTER 2018-12-24 15:19 | Emergency (ER) | payer MEDICAID ==
[2018-12-24] MEDS ORDERED: HYDROcod/ACETAM 5/325 MG TABLET PO STA (15:40)
--- NOTE | 2018-12-24 15:42 | ED Physician Documentation ---
PD HPI LOWER EXT INJURY - Stated complaint Stated Complaint: FALL - Chief complaint Chief Complaint: Trauma Ext - History obtained from History obtained from: Patient - History of Present Illness PD HPI LOW EXT INJURY LOCATION: Left (She slipped and fell 3 days ago at home. She hit her head with her head not bothering her now. She has persistent left hand pain in the area of the first metacarpal and left ankle pain laterally. She is able to walk and bear weight. 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: None : Other HEENT: Other Psych: None Musculoskeletal: Osteoarthritis Derm: None - Past Surgical History Past Surgical History: Yes General: Colonoscopy Ortho: Arthroscopic surgery, Carpal Tunnel surgery /SENIOR COPYWRITER: Hysterectomy, Oophrectomy - Present Medications Home Medications: Ambulatory Orders Medication Instructions Recorded Confirmed Gabapentin 1 cap PO DAILY 03/30/18 12/24/18 Hydrocodone/Acetaminophen 1 - 2 each PO Q6H PRN #10 tablet 12/24/18 [Hydrocodon-Acetaminophen 5-325] - Allergies Allergies/Adverse Reactions: Allergies Allergy/AdvReac Type Severity Reaction Status Date / Time ibuprofen Allergy Severe Hives Verified 12/24/18 15:27 baclofen Allergy Intermediate Rash Verified 12/24/18 15:27 cephalexin [Cephalexin] Allergy Intermediate Rash Verified 12/24/18 15:27 clarithromycin [From Biaxin] Allergy Intermediate Rash Verified 12/24/18 15:27 codeine [Codeine] Allergy Intermediate Rash Verified 12/24/18 15:27 Penicillins Allergy Intermediate Rash Verified 12/24/18 15:27 aspirin AdvReac Intermediate Nausea Verified 12/24/18 15:27 acetaminophen [From Vicodin] AdvReac Unknown Nausea Verified 12/24/18 15:27 hydrocodone bitartrate * AdvReac Unknown Nausea Verified 12/24/18 15:27 [From Vicodin] - Social History Does the pt smoke?: No Smoking Status: Never smoker Does the pt drink ETOH?: No Does the pt have substance abuse?: No - Immunizations Immunizations are current?: Yes - POLST Patient has POLST: No PD ED PE NORMAL - Vitals Vital signs reviewed: Yes - General General: Alert and oriented X 3, No acute distress - HEENT HEENT: PERRL, EOMI - Neck Neck: Supple, no meningeal sign, No bony TTP - Extremities Extremities: Other (Mild tenderness over the first metacarpal of the left hand without deformity. She has good range of motion. In the thumb and in the wrist. There is no deformity. There is mild tenderness over the ATFL and both malleoli of the left ankle without deformity. Her gait is normal. There is no proximal fibular tenderness.) - Neuro Neuro: Alert and oriented X 3, Normal speech Results - Vitals Vitals: Vital Signs - 24 hr 12/24/18 15:24 Temperature 36.1 C L Heart Rate 76 Respiratory 20 Rate Blood Pressure 130/58 L O2 Saturation 99 Oxygen O2 Source Room air - Rads (name of study) X-rays of the left ankle and hand Radiology: EMP read contemporaneously (No fractures) Departure - Departure Disposition: 01 Home, Self Care Clinical Impression: Left ankle sprain Qualifiers: Encounter type: initial encounter Involved ligament of ankle: anterior talofibular ligament Qualified Code(s): S93.492A - Sprain of other ligament of left ankle, initial encounter Left wrist sprain Qualifiers: Encounter type: initial encounter Qualified Code(s): S63.502A - Unspecified sprain of left wrist, initial encounter Condition: Good Instructions: ED Sprain Ankle W X Ray, ED Sprain Hand Prescriptions: Hydrocodone/Acetaminophen [Hydrocodon-Acetaminophen 5-325] 1 - 2 each PO Q6H PRN #10 tablet PRN Reason: pain Comments: Recheck with your doctor in a week. Return for new or worsening symptoms.
--- NOTE | 2018-12-24 16:25 | XRAY Report ---
Reason: hand and ankle inj, fall 3 days ago Procedure Date: 12/24/2018 Accession Number: [id number] / [id number] Procedure: XR - Hand 3 View LT CPT Code: FULL RESULT: EXAM: LEFT HAND RADIOGRAPHY EXAM DATE: 12/24/2018 03:51 PM. CLINICAL HISTORY: Hand and ankle inj, fall 3 days ago. Pain COMPARISON: HAND 3 VIEW BILAT 05/21/2018 4:13 PM. TECHNIQUE: 3 views. FINDINGS: Bones: Postop trapezial resection No fractures or bone lesions. Joints: Degenerative changes first metacarpal base. Soft Tissues: Normal. No soft tissue swelling. IMPRESSION: Postop changes. DJD RADIA
--- NOTE | 2018-12-24 16:26 | XRAY Report ---
Reason: hand and ankle inj, fall 3 days ago Procedure Date: 12/24/2018 Accession Number: [id number] / [id number] Procedure: XR - Ankle 3 View LT CPT Code: FULL RESULT: EXAM: LEFT ANKLE RADIOGRAPHY EXAM DATE: 12/24/2018 03:51 PM. CLINICAL HISTORY: Hand and ankle inj, fall 3 days ago. Pain COMPARISON: ANKLE 3 VIEW LT 08/14/2017 8:43 PM. TECHNIQUE: 3 views. FINDINGS: Bones: Normal. No fractures or bone lesions. Joints: Normal. No effusion. No subluxations. The ankle mortise is normally aligned. Soft Tissues: Soft tissue swelling. IMPRESSION: Normal ankle radiography. RADIA
[2018-12-24 16:40] VITALS: BP 122/57
== END 2018-12-24 16:39 | disposition home or self-care (01) ==
LOC: ED 15:19
DX: S93.492A Sprain of other ligament of left ankle, initial encounter (principal); S63.502A Unspecified sprain of left wrist, initial encounter; W01.0XXA Fall on same level from slipping, tripping and stumbling without subsequent striking against object, initial encounter; Y92.009 Unspecified place in unspecified non-institutional (private) residence as the place of occurrence of the external cause
CPT/HCPCS: 73130; 73610; 99283; 99284; A9270

== ENCOUNTER 2019-02-19 08:42 | Outpatient (CLI) | payer MEDICAID ==
--- NOTE | 2019-02-19 10:55 | XRAY Report ---
Reason: L FOOT PAIN Procedure Date: 02/19/2019 Accession Number: [id number] / [id number] Procedure: XRN - Foot 3 View LT CPT Code: FULL RESULT: EXAM: LEFT FOOT RADIOGRAPHY EXAM DATE: 02/19/2019 09:03 AM. CLINICAL HISTORY: L FOOT PAIN. COMPARISON: FOOT 3 VIEW LT 08/14/2017 8:43 PM. TECHNIQUE: 3 views. FINDINGS: Bones: Normal. No fractures or bone lesions. Joints: Dorsal spur cuneiform. No subluxations. Soft Tissues: Normal. No soft tissue swelling. IMPRESSION: Negative for fracture RADIA
== END 2019-02-19 08:43 | disposition home or self-care (01) ==
LOC: DI.N 08:42
PROVIDERS: ATTEND Family Medicine
DX: M79.672 Pain in left foot (principal)

== ENCOUNTER 2019-04-01 08:51 | Outpatient (CLI) | payer MEDICAID ==
--- NOTE | 2019-04-02 09:02 | Mammography Report ---
Reason: SCREENING MAMMOGRAM FOR BREAST CANCER Procedure Date: 04/01/2019 Accession Number: [id number] / [id number] Procedure: MGN - Screening Mammo Dig Bilat CPT Code: FULL RESULT: EXAM: Screening Mammo Dig Bilat DATE: 04/01/2019 9:27 AM CLINICAL HISTORY: Screening encounter. No reported risk factors. TECHNIQUE: (B) - Bilateral CC and MLO views were obtained. COMPARISON: 11/09/2013. PARENCHYMAL PATTERN: (D) - The breast(s) demonstrate(s) heterogeneously dense fibroglandular parenchyma. FINDINGS: There are no suspicious masses, calcifications, or areas of distortion. IMPRESSION: Negative examination. BI-RADS category 1. RECOMMENDATION: (ANNUAL) - Recommend routine annual screening mammography. BI-RADS CATEGORY: (1) - Negative. STANDARD QUALIFYING STATEMENTS: 1. This examination was not reviewed with the aid of Computer-Aided Detection (CAD). 2. A negative or benign imaging report should not preclude biopsy if clinically suspicious findings are present. 3. Dense breasts may obscure an underlying neoplasm. 4. This examination was reviewed without the aid of 3D breast imaging (tomosynthesis).
== END 2019-04-01 08:52 | disposition home or self-care (01) ==
LOC: DI.N 08:51
PROVIDERS: ATTEND Physician Assistant Medical
DX: Z12.31 Encounter for screening mammogram for malignant neoplasm of breast (principal)
CPT/HCPCS: 77067

== ENCOUNTER 2019-05-14 16:11 | Emergency (ER) | payer MEDICAID ==
--- NOTE | 2019-05-14 16:19 | ED Physician Documentation ---
PD HPI LOWER EXT INJURY - Stated complaint Stated Complaint: L FOOT PX - Chief complaint Chief Complaint: Ext Problem - History obtained from History obtained from: Patient - History of Present Illness PD HPI LOW EXT INJURY LOCATION: Left, Foot Type of injury: Fall, Twist (she says tripped and fell, with inversion of foot. Pain proximal 5th MT area, that has persisted the week.) Timing - onset: How many weeks ago (1) Timing - duration: Weeks (1) Timing - details: Abrupt onset, Still present Improved by: Rest Worsened by: Moving, Palpating, Other (walking) Associated symptoms: Swelling. 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 : Other HEENT: Other Psych: None Musculoskeletal: Osteoarthritis Derm: None - Past Surgical History Past Surgical History: Yes General: Colonoscopy Ortho: Arthroscopic surgery, Carpal Tunnel surgery /ASSISTANT ASSOCIATE FULL PROFESSOR: Hysterectomy, Oophrectomy - Present Medications Home Medications: Ambulatory Orders Medication Instructions Recorded Confirmed Gabapentin 1 cap PO DAILY 03/30/18 12/24/18 Naproxen 375 mg PO BID #20 tablet 05/14/19 Tramadol HCl 50 mg PO Q6H PRN #20 tablet 05/14/19 - Allergies Allergies/Adverse Reactions: Allergies Allergy/AdvReac Type Severity Reaction Status Date / Time ibuprofen Allergy Severe Hives Verified 05/14/19 16:38 baclofen Allergy Intermediate Rash Verified 05/14/19 16:38 cephalexin [Cephalexin] Allergy Intermediate Rash Verified 05/14/19 16:38 clarithromycin [From Biaxin] Allergy Intermediate Rash Verified 05/14/19 16:38 codeine [Codeine] Allergy Intermediate Rash Verified 05/14/19 16:38 Penicillins Allergy Intermediate Rash Verified 05/14/19 16:38 aspirin AdvReac Intermediate Nausea Verified 05/14/19 16:38 acetaminophen [From Vicodin] AdvReac Unknown Nausea Verified 05/14/19 16:38 hydrocodone bitartrate * AdvReac Unknown Nausea Verified 05/14/19 16:38 [From Vicodin] - Social History Does the pt smoke?: No Smoking Status: Never smoker Does the pt drink ETOH?: No Does the pt have substance abuse?: No - Immunizations Immunizations are current?: Yes - POLST Patient has POLST: No PD ED PE NORMAL - Vitals Vital signs reviewed: Yes - General General: Alert and oriented X 3, No acute distress, Well developed/nourished - Derm Derm: Normal color, Warm and dry, No rash - Extremities Extremities: Other (left foot with tenderness but no noted deformity at proximal 5th MT area. The ankle itself not tender and the Achilles is firm and not tender. ) - Neuro Neuro: No motor deficit, No sensory deficit Results - Vitals Vitals: Vital Signs - 24 hr 05/14/19 16:13 Temperature 36.9 C Heart Rate 79 Respiratory 18 Rate Blood Pressure 150/93 H O2 Saturation 97 Oxygen O2 Source Room air - Rads (name of study) left foot Radiology: Prelim report reviewed (no fractures), See rad report PD MEDICAL DECISION MAKING - ED course Complexity details: reviewed results, considered differential, d/w patient Departure - Departure Disposition: 01 Home, Self Care Clinical Impression: Sprain of left foot Qualifiers: Encounter type: initial encounter Qualified Code(s): S93.602A - Unspecified sprain of left foot, initial encounter Condition: Stable Record reviewed to determine appropriate education?: Yes Instructions: ED Sprain Foot Follow-Up: Robe Keller PA-C [Primary Care Provider] - Vasquez Marti MD [Provider Admit Priv/Credential] - Prescriptions: Naproxen 375 mg PO BID #20 tablet Tramadol HCl 50 mg PO Q6H PRN #20 tablet PRN Reason: Pain Comments: Use the orthopedic shoe to minimize motion through the midfoot and allow the sprain part to heal up. Naproxen anti-inflammatory twice daily with food for the next week or so. Add Tylenol or tramadol if needed for pains. Recheck if not improved over the next several days to week. Discharge Date/Time: 05/14/19 18:26
[2019-05-14 16:26] VITALS: BP 150/93
[2019-05-14] MEDS ORDERED: oxyCODONE 5 MG TABLET PO STA (16:38)
--- NOTE | 2019-05-14 17:33 | XRAY Report ---
Reason: foot injury/twist, 2 days ago Procedure Date: 05/14/2019 Accession Number: [id number] / [id number] Procedure: XR - Foot 3 View LT CPT Code: FULL RESULT: EXAM: LEFT FOOT RADIOGRAPHY EXAM DATE: 05/14/2019 05:15 PM. CLINICAL HISTORY: Foot injury/twist, 2 days ago. COMPARISON: FOOT 3 VIEW LT 02/19/2019 9:07 AM. TECHNIQUE: 3 views. FINDINGS: Bones: No acute fracture or bony lesion. Bones appear demineralized. Joints: No dislocation. Mild left first MTP joint and left midfoot joint degenerative changes. No dislocation. Soft Tissues: Unremarkable. No radiopaque foreign bodies. IMPRESSION: 1. No acute osseous abnormalities. RADIA
== END 2019-05-14 18:26 | disposition home or self-care (01) ==
LOC: ED 16:11
DX: S93.602A Unspecified sprain of left foot, initial encounter (principal); X50.1XXA Overexertion from prolonged static or awkward postures, initial encounter; W19.XXXA Unspecified fall, initial encounter
CPT/HCPCS: 73630; 99283; A9270

== ENCOUNTER 2019-08-04 16:41 | Emergency (ER) | payer OTHER, MEDICAID ==
[2019-08-04] MEDS ORDERED: AZITHROMYCIN 250 MG TABLET PO STA (17:15)
[2019-08-04] MEDS ORDERED: cefTRIAXone 250 MG VIAL IM STA (17:15)
[2019-08-04] MEDS ORDERED: metroNIDAZOLE 250 MG TABLET PO STA (17:15)
[2019-08-04] MEDS ORDERED: LIDOCAINE 1% 2 ML VIAL MC ONE (17:15)
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
[2019-08-04 18:59] LABS: BILIRUBIN,URINE NEGATIVE (NEGATIVE); CLARITY,URINE CLEAR (CLEAR); GLUCOSE, URINE (UA) NEGATIVE (NEGATIVE); KETONES,URINE (UA) NEGATIVE (NEGATIVE); LEUKOCYTE ESTERASE, URINE SMALL (NEGATIVE); NITRITE,URINE NEGATIVE (NEGATIVE); OCCULT BLOOD,URINE NEGATIVE (NEGATIVE); PROTEIN,URINE NEGATIVE (NEGATIVE); UROBILINOGEN,URINE 0.2 (NORMAL) E.U./dL (NORMAL)
[2019-08-04 19:04] LABS: HCG UR QUAL NEGATIVE
[2019-08-04 19:17] LABS: BACTERIA,URINE Rare /HPF (None Seen); RBC,URINE 0-5 /HPF (0-5); SQUAMOUS EPITHELIAL CELL,UR FEW Squamous (<= Few)
[2019-08-04 20:39] VITALS: BP 132/93
[2019-08-05 12:27] LABS: HEPATITIS A IGM NON-REACTIVE (NON-REACTIVE); HEPATITIS B SURFACE ANTIGEN NON-REACTIVE (NON-REACTIVE); HEPATITIS C ANTIBODY NON-REACTIVE (NON-REACTIVE)
[2019-08-05 15:27] LABS: HIV AG/AB 4TH GEN NON-REACTIVE (NON-REACTIVE)
[2019-08-05 22:21] LABS: TRICHOMONAS VAGINALIS DNA NEGATIVE (NEGATIVE)
== END 2019-08-04 20:37 | disposition home or self-care (01) ==
LOC: ED 16:41
DX: T76.21XA Adult sexual abuse, suspected, initial encounter (principal); S30.814A Abrasion of vagina and vulva, initial encounter; R10.2 Pelvic and perineal pain; Y07.01 Husband, perpetrator of maltreatment and neglect; Y92.009 Unspecified place in unspecified non-institutional (private) residence as the place of occurrence of the external cause
CPT/HCPCS: 0133C; 36415; 80074; 81001; 81025; 87086; 87389; 87491; 87591; 87661; 96372; A9270; 81003

== ENCOUNTER 2019-10-19 14:37 | Outpatient (CLI) | payer MEDICAID ==
--- NOTE | 2019-10-20 12:33 | XRAY Report ---
Reason: FOOT PAIN,LEFT Procedure Date: 10/19/2019 Accession Number: [id number] / [id number] Procedure: XRN - Foot 3 View LT CPT Code: Final Report FULL RESULT: EXAM: LEFT FOOT RADIOGRAPHY EXAM DATE: 10/19/2019 02:52 PM. CLINICAL HISTORY: Foot pain, left. Tripped and fell 3 days ago. COMPARISON: FOOT 3 VIEW LT 05/14/2019 5:10 PM. TECHNIQUE: 3 views. FINDINGS: Bones: Normal. No fractures or bone lesions. Joints: Normal. No subluxations. Soft Tissues: No soft tissue gas or radiopaque foreign body. No soft tissue swelling. IMPRESSION: No acute fracture or dislocation. RADIA
== END 2019-10-19 14:38 | disposition home or self-care (01) ==
LOC: DI.N 14:37
PROVIDERS: ATTEND Physician Assistant Medical
DX: M79.672 Pain in left foot (principal)

== ENCOUNTER 2020-02-20 19:33 | Emergency (ER) | payer MEDICAID ==
[2020-02-20] MEDS ORDERED: traMADol 50 MG TABLET PO STA (19:47)
--- NOTE | 2020-02-20 19:49 | ED Physician Documentation ---
PD HPI LOWER EXT INJURY - Stated complaint Stated Complaint: LT FOOT INJ - Chief complaint Chief Complaint: Ext Problem - History obtained from History obtained from: Patient - History of Present Illness PD HPI LOW EXT INJURY LOCATION: Left (She hit her left foot on a fan last night and has persistent pain. No other injuries. 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: None : Other HEENT: Other Psych: None Musculoskeletal: Osteoarthritis Derm: None - Past Surgical History Past Surgical History: Yes General: Colonoscopy Ortho: Arthroscopic surgery, Carpal Tunnel surgery /REGULATORY SUBMISSIONS SPECIALIST: Hysterectomy, Oophrectomy - Present Medications Home Medications: Ambulatory Orders Medication Instructions Recorded Confirmed Gabapentin 1 cap PO DAILY 03/30/18 02/20/20 Tramadol HCl 50 mg PO Q6H PRN #10 tablet 02/20/20 - Allergies Allergies/Adverse Reactions: Allergies Allergy/AdvReac Type Severity Reaction Status Date / Time ibuprofen Allergy Severe Hives Verified 02/20/20 19:42 baclofen Allergy Intermediate Rash Verified 02/20/20 19:42 cephalexin [Cephalexin] Allergy Intermediate Rash Verified 02/20/20 19:42 clarithromycin [From Biaxin] Allergy Intermediate Rash Verified 02/20/20 19:42 codeine [Codeine] Allergy Intermediate Rash Verified 02/20/20 19:42 Penicillins Allergy Intermediate Rash Verified 02/20/20 19:42 aspirin AdvReac Intermediate Nausea Verified 02/20/20 19:42 acetaminophen [From Vicodin] AdvReac Unknown Nausea Verified 02/20/20 19:42 hydrocodone bitartrate * AdvReac Unknown Nausea Verified 02/20/20 19:42 [From Vicodin] - Social History Does the pt smoke?: No Smoking Status: Never smoker Does the pt drink ETOH?: No Does the pt have substance abuse?: No - Immunizations Immunizations are current?: Yes - POLST Patient has POLST: No PD ED PE NORMAL - Vitals Vital signs reviewed: Yes - General General: Alert and oriented X 3, No acute distress - Extremities Extremities: Other (Tender on the dorsum of the foot and around the fifth metatarsal. Tenderness seems to diffuse to be consistent with bony injury. There is no deformity.) - Neuro Neuro: Alert and oriented X 3, Normal speech Results - Vitals Vitals: Vital Signs - 24 hr 02/20/20 19:39 Temperature 36.3 C L Heart Rate 84 Respiratory 18 Rate Blood Pressure 115/32 L O2 Saturation 96 Oxygen O2 Source Room air Departure - Departure Disposition: Home, Self Care Clinical Impression: Contusion of left foot Qualifiers: Encounter type: initial encounter Qualified Code(s): S90.32XA - Contusion of left foot, initial encounter Condition: Good Record reviewed to determine appropriate education?: Yes Instructions: ED Contusion Foot Prescriptions: Tramadol HCl 50 mg PO Q6H PRN #10 tablet PRN Reason: Pain Comments: Back with your doctor in 1 week if not better, return for new or worsening symptoms. You may walk and bear weight as tolerated as your x-rays are
--- NOTE | 2020-02-20 20:10 | XRAY Report ---
Reason: foot inj Procedure Date: 02/20/2020 Accession Number: [id number] / [id number] Procedure: XR - Foot 3 View LT CPT Code: Final Report FULL RESULT: EXAM: LEFT FOOT RADIOGRAPHY EXAM DATE: 02/20/2020 08:00 PM. CLINICAL HISTORY: Lateral pain since injury yesterday. COMPARISON: FOOT 3 VIEW LT 10/19/2019 2:57 PM. TECHNIQUE: 3 views. FINDINGS: Bones: Normal. No fractures or bone lesions. Joints: Normal. No subluxations. Soft Tissues: Unremarkable. IMPRESSION: Normal foot radiography. RADIA
[2020-02-20 20:21] VITALS: BP 128/87
== END 2020-02-20 20:21 | disposition home or self-care (01) ==
LOC: ED 19:33
DX: S90.32XA Contusion of left foot, initial encounter (principal); W29.2XXA Contact with other powered household machinery, initial encounter
CPT/HCPCS: 73630; 99283; A9270

== ENCOUNTER 2020-05-05 08:00 | Outpatient (CLI) | payer MEDICAID ==
[2020-05-05 18:17] LABS: BASOPHILS % (AUTO) 0.4 %; EOSINOPHILS # (AUTO) 0.1 10^3/uL (0.0-0.7); EOSINOPHILS % (AUTO) 0.6 %; HGB - HEMOGLOBIN 13.2 g/dL (12.0-16.0); LYMPHOCYTES # (AUTO) 3.2 10^3/uL (1.5-3.5); LYMPHOCYTES % (AUTO) 32.7 %; MEAN CORPUSCULAR HEMOGLOBIN 29.9 pg (27.0-31.0); MEAN CORPUSCULAR HGB CONC 32.4 g/dL (32.0-36.0); MEAN CORPUSCULAR VOLUME 92.3 fL (81.0-99.0); MEAN PLATELET VOLUME 11.6 fL (7.9-10.8); MONOCYTES # (AUTO) 0.4 10^3/uL (0.0-1.0); MONOCYTES % (AUTO) 4.1 %; NEUTROPHILS # (AUTO) 6.1 10^3/uL (1.5-6.6); NEUTROPHILS % (AUTO) 61.8 %; PLT - PLATELET COUNT 235 10^3/uL (130-450); RED BLOOD COUNT 4.42 10^6/uL (4.20-5.40); RED CELL DISTRIBUTION WIDTH 13.2 % (12.0-15.0); WHITE BLOOD COUNT 9.9 x10^3/uL (4.8-10.8)
[2020-05-05 18:56] LABS: ALBUMIN 4.4 g/dL (3.2-5.5); ALBUMIN/GLOBULIN RATIO 1.5 (1.0-2.2); ALKALINE PHOSPHATASE 61 IU/L (42-121); ALT ALANINE AMINOTRANSFERASE 16 IU/L (10-60); AST ASPARTATE AMINOTRANSFERASE 17 IU/L (10-42); BILIRUBIN,TOTAL 0.7 mg/dL (0.2-1.0); BUN - BLOOD UREA NITROGEN 11 mg/dL (6-20); CALCIUM 9.1 mg/dL (8.5-10.3); CARBON DIOXIDE - CO2 26 mmol/L (21-32); CHLORIDE 103 mmol/L (101-111); CREATININE 0.6 mg/dL (0.4-1.0); GLUCOSE 97 mg/dL (70-100); SODIUM 140 mmol/L (135-145); TOTAL PROTEIN 7.3 g/dL (6.7-8.2); URIC ACID 4.5 mg/dL (2.6-7.2)
[2020-05-05 18:58] LABS: CRP - C-REACTIVE PROTEIN < 1.0 mg/dL (0-1.0)
[2020-05-05 19:00] LABS: THYROID STIMULATING HORMONE 2.07 uIU/mL (0.34-5.60)
[2020-05-05 19:02] LABS: FREE T3 3.67 pg/mL (2.5-3.9); FREE T4 (FREE THYROXINE) 0.74 ng/dL (0.58-1.64)
== END 2020-05-05 23:59 | disposition home or self-care (01) ==
LOC: LAB.WCP 08:00
PROVIDERS: ATTEND Family Medicine
DX: M60.9 Myositis, unspecified (principal); G25.81 Restless legs syndrome; M62.81 Muscle weakness (generalized)
CPT/HCPCS: 36415; 80053; 84439; 84443; 84481; 84550; 85025; 85651; 86038; 86140

== ENCOUNTER 2020-06-24 21:11 | Emergency (ER) | payer MEDICAID ==
--- NOTE | 2020-06-24 21:13 | ED Physician Documentation ---
History of Present Illness - Stated complaint Stated Complaint: LT FOOT PX/INJ - History obtained from History obtained from: Patient - Additonal information Additional information: 51-year-old female presents with left foot pain that she has had off and on for the last year. Denies any recent trauma denies any ankle twist reports pain that is worse when she first walks on it after sleeping.Denies any fevers denies any trauma. Patient reports a previous injury to her left foot reports she is able to ambulate but it hurts. Review of Systems Constitutional: reports: Reviewed and negative Eyes: reports: Reviewed and negative Ears: reports: Reviewed and negative Nose: reports: Reviewed and negative Throat: reports: Reviewed and negative Cardiac: reports: Reviewed and negative Respiratory: reports: Reviewed and negative GI: reports: Reviewed and negative : reports: Reviewed and negative Skin: reports: Reviewed and negative Musculoskeletal: reports: Extremity pain Neurologic: reports: Reviewed and negative Psychiatric: reports: Reviewed and negative Endocrine: reports: Reviewed and negative Immunocompromised: reports: Reviewed and negative PD PAST MEDICAL HISTORY - Past Medical History Cardiovascular: None Respiratory: None Neuro: None Endocrine/Autoimmune: None GI: Other 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 CONTROL ROOM OPERATOR: None : Other HEENT: Other Psych: None Musculoskeletal: Osteoarthritis Derm: None - Past Surgical History Past Surgical History: Yes General: Colonoscopy Ortho: Arthroscopic surgery, Carpal Tunnel surgery /SWITCHBOARD AND CONTROL ROOM OPERATOR: Hysterectomy, Oophrectomy - Present Medications Home Medications: Ambulatory Orders Medication Instructions Recorded Confirmed Gabapentin 1 cap PO DAILY 03/30/18 02/20/20 Tramadol HCl 50 mg PO Q6H PRN #10 tablet 02/20/20 - Allergies Allergies/Adverse Reactions: Allergies Allergy/AdvReac Type Severity Reaction Status Date / Time ibuprofen Allergy Severe Hives Verified 02/20/20 19:42 baclofen Allergy Intermediate Rash Verified 02/20/20 19:42 cephalexin [Cephalexin] Allergy Intermediate Rash Verified 02/20/20 19:42 clarithromycin [From Biaxin] Allergy Intermediate Rash Verified 02/20/20 19:42 codeine [Codeine] Allergy Intermediate Rash Verified 02/20/20 19:42 Penicillins Allergy Intermediate Rash Verified 02/20/20 19:42 aspirin AdvReac Intermediate Nausea Verified 02/20/20 19:42 acetaminophen [From Vicodin] AdvReac Unknown Nausea Verified 02/20/20 19:42 hydrocodone bitartrate * AdvReac Unknown Nausea Verified 02/20/20 19:42 [From Vicodin] - Social History Does the pt smoke?: No Smoking Status: Never smoker Does the pt drink ETOH?: No Does the pt have substance abuse?: No - Immunizations Immunizations are current?: Yes - POLST Patient has POLST: No PD ED PE NORMAL - Vitals Vital signs reviewed: Yes - General General: Alert and oriented X 3, No acute distress - HEENT HEENT: PERRL - Neck Neck: Supple, no meningeal sign - Cardiac Cardiac: RRR, No murmur - Respiratory Respiratory: Clear bilaterally - Abdomen Abdomen: Normal bowel sounds, Soft, Non tender, Non distended - Derm Derm: Warm and dry - Extremities Extremities: No deformity, Other (diffuse ttp to the left foot, no gross deformity. no ttp over base of fifth metatarsal, nv intact, compartments soft, palp dp/pt pulses 2+. normal gait.) - Neuro Neuro: Alert and oriented X 3 - Psych Psych: Normal mood, Normal affect Results - Vitals Vitals: Vital Signs - 24 hr 06/24/20 21:19 Temperature 36.3 C L Heart Rate 77 Respiratory 18 Rate Blood Pressure 150/61 H O2 Saturation 98 Oxygen O2 Source Room air PD MEDICAL DECISION MAKING - ED course Complexity details: considered differential (left foot pain.) ED course: Please note the excessive length of stay and time to discharge was secondary to waiting on radiology interpretation of x-rays. Departure - Departure Disposition: 01 Home, Self Care Clinical Impression: Left foot pain, Metatarsalgia of left foot Condition: Stable Instructions: Metatarsalgia Tx Follow-Up: Wiliam Gonzales MD [Primary Care Provider] - Comments: Please follow-up with your primary care provider or a technical proposal writer on Saturday. You may use [id number]-[id number] treatments for pain relief and ice several times daily.
[2020-06-24 23:56] VITALS: BP 104/56
--- NOTE | 2020-06-25 08:18 | XRAY Report ---
PROCEDURE: Foot 3 View LT INDICATIONS: left foot pain TECHNIQUE: 3 views of the foot were acquired. COMPARISON: 02/20/2020 FINDINGS: Bones: No fractures or dislocations. No suspicious bony lesions. Soft tissues: No tibiotalar joint effusion. Achilles tendon appears normal. IMPRESSION: Left foot without acute radiographic abnormalities. No significant discrepancy with initial interpretation by overnight radiologist. Reviewed by: Pascual Cary MD on 06/25/2020 8:16 AM PDT Approved by: Pascual Cary MD on 06/25/2020 8:16 AM PDT Station ID: [id number]
== END 2020-06-25 00:01 | disposition home or self-care (01) ==
LOC: ED 21:11
DX: M77.42 Metatarsalgia, left foot (principal)
CPT/HCPCS: 99282; 99283

== ENCOUNTER 2021-05-09 08:00 | Outpatient (CLI) | payer MEDICAID ==
--- NOTE | 2021-05-10 08:51 | XRAY Report ---
PROCEDURE: Foot 2 View LT INDICATIONS: L FOOT PX TECHNIQUE: 2 views of the foot were acquired. COMPARISON: 06/24/2020 and 02/20/2020 FINDINGS: Bones: No fractures or dislocations. Osteoarthritic changes are again seen involving midfoot and for efoot joints more prominent at first MTP joint. No suspicious bony lesions. Soft tissues: No tibiotalar joint effusion. Achilles tendon appears normal. IMPRESSION: No left foot fracture or dislocation. Mild osteoarthritic changes are seen in midfoot and forefoot alex ints as above. Reviewed by: Brian Stapleton MD on 05/10/2021 8:50 AM PDT Approved by: Brian Stapleton MD on 05/10/2021 8:50 AM PDT Station ID: [id number]
== END 2021-05-09 23:59 | disposition home or self-care (01) ==
LOC: DI.N 08:00
PROVIDERS: ATTEND Family Medicine
DX: M79.672 Pain in left foot (principal); M19.072 Primary osteoarthritis, left ankle and foot

== ENCOUNTER 2022-04-17 09:29 | Outpatient (CLI) | payer MEDICAID ==
[2022-04-17 11:46] LABS: BASOPHILS % (AUTO) 0.5 %; EOSINOPHILS % (AUTO) 0.5 %; HCT - HEMATOCRIT 43.8 % (37.0-47.0); LYMPHOCYTES # (AUTO) 2.6 10^3/uL (1.5-3.5); MEAN CORPUSCULAR HEMOGLOBIN 29.3 pg (27.0-31.0); MEAN CORPUSCULAR VOLUME 91.6 fL (81.0-99.0); MEAN PLATELET VOLUME 11.5 fL (7.9-10.8); MONOCYTES # (AUTO) 0.4 10^3/uL (0.0-1.0); NEUTROPHILS # (AUTO) 4.3 10^3/uL (1.5-6.6); NEUTROPHILS % (AUTO) 58.7 %; PLT - PLATELET COUNT 244 10^3/uL (130-450); RED BLOOD COUNT 4.78 10^6/uL (4.20-5.40); RED CELL DISTRIBUTION WIDTH 13.6 % (12.0-15.0); WHITE BLOOD COUNT 7.3 x10^3/uL (4.8-10.8)
[2022-04-17 12:50] LABS: ALBUMIN 4.1 g/dL (3.2-5.5); ALBUMIN/GLOBULIN RATIO 1.2 (1.0-2.2); ALKALINE PHOSPHATASE 71 IU/L (42-121); ALT ALANINE AMINOTRANSFERASE 13 IU/L (10-60); AST ASPARTATE AMINOTRANSFERASE 13 IU/L (10-42); BILIRUBIN,TOTAL 0.5 mg/dL (0.2-1.0); BUN - BLOOD UREA NITROGEN 8 mg/dL (6-20); CALCIUM 9.2 mg/dL (8.5-10.3); CARBON DIOXIDE - CO2 26 mmol/L (21-32); CHLORIDE 103 mmol/L (101-111); CHOL/HDL RATIO 8.2 (<4.4); CHOLESTEROL 269 mg/dL; CREATININE 0.7 mg/dL (0.4-1.0); GFR - MDRD 85 (>89); GLUCOSE 134 mg/dL (70-100); HDL CHOLESTEROL 33 mg/dL; LDL CHOLESTEROL,CALCULATED 207 mg/dL; LDL/HDL RATIO 6.3 (<4.4); POTASSIUM 3.8 mmol/L (3.5-5.0); SODIUM 139 mmol/L (135-145); TOTAL PROTEIN 7.5 g/dL (6.7-8.2); TRIGLYCERIDES 147 mg/dL; VLDL CHOLESTEROL 29 mg/dL
[2022-04-17 12:52] LABS: THYROID STIMULATING HORMONE 4.1 uIU/mL (0.34-5.60)
== END 2022-04-17 09:30 | disposition home or self-care (01) ==
LOC: LAB.N 09:29
PROVIDERS: ATTEND Family Medicine
DX: G62.9 Polyneuropathy, unspecified (principal); M60.9 Myositis, unspecified; S64.01XA Injury of ulnar nerve at wrist and hand level of right arm, initial encounter
CPT/HCPCS: 36415; 80053; 80061; 83721; 84443; 85025

== ENCOUNTER 2022-07-31 13:08 | Outpatient (CLI) | payer MEDICAID ==
--- NOTE | 2022-07-31 19:46 | XRAY Report ---
PROCEDURE: Shoulder 2 View LT INDICATIONS: L ARM PX TECHNIQUE: 2 views of the shoulder were acquired. COMPARISON: Left shoulder radiographs 12/12/2014 FINDINGS: Bones: No fractures or dislocations. No suspicious bony lesions. Visualized ribs appear intact. M ild/moderate degenerative changes are seen at the acromioclavicular joint. Soft tissues: No suspicious soft tissue calcifications. IMPRESSION: Mild to moderate progressive acromioclavicular joint osteoarthrosis. No acute osseous ab normality. If symptoms persist or there is continued clinical concern, further evaluation with MRI or CT may be helpful. Reviewed by: Alhaji Purdy MD on 07/31/2022 7:44 PM PDT Approved by: Alhaji Purdy MD on 07/31/2022 7:44 PM PDT Station ID: [id number]
--- NOTE | 2022-07-31 19:48 | XRAY Report ---
PROCEDURE: Humerus LT INDICATIONS: L ARM PX TECHNIQUE: 2 views of the humerus were acquired. COMPARISON: None. FINDINGS: Bones: No acute fractures or dislocations. No suspicious bony lesions. Mild generalized osteopenia . Soft tissues: No suspicious soft tissue calcifications. IMPRESSION: No acute osseous abnormality. If symptoms persist or there is continued clinical concern, further lubna luation with MRI or CT may be helpful. Reviewed by: Alhaji Purdy MD on 07/31/2022 7:47 PM PDT Approved by: Alhaji Purdy MD on 07/31/2022 7:47 PM PDT Station ID: [id number]
== END 2022-07-31 13:09 | disposition home or self-care (01) ==
LOC: DI.N 13:08
PROVIDERS: ATTEND Physician Assistant
DX: M19.012 Primary osteoarthritis, left shoulder (principal)

== ENCOUNTER 2022-08-13 08:00 | Outpatient (CLI) | payer MEDICAID ==
--- NOTE | 2022-08-14 14:26 | XRAY Report ---
PROCEDURE: Shoulder 2 View LT INDICATIONS: LEFT SHOULDER TO FOREARM PAIN TECHNIQUE: 2 views of the shoulder were acquired. COMPARISON: Left shoulder radiographs 07/31/2022 FINDINGS: Bones: No acute fractures or dislocations. No suspicious bony lesions. Visualized ribs appear inta ct. Mild to moderate acromioclavicular joint osteoarthrosis. Soft tissues: No suspicious soft tissue calcifications. IMPRESSION: Mild to moderate acromioclavicular joint osteoarthrosis. No acute osseous abnormality. I f symptoms persist or there is continued clinical concern, further evaluation with MRI or CT may be h elpful. Reviewed by: Alhaji Purdy MD on 08/14/2022 2:24 PM PDT Approved by: Alhaji Purdy MD on 08/14/2022 2:24 PM PDT Station ID: [id number]
--- NOTE | 2022-08-14 15:02 | XRAY Report ---
PROCEDURE: Forearm LT INDICATIONS: LEFT SHOULDER TO FOREARM PAIN TECHNIQUE: 2 views of the forearm were acquired. COMPARISON: Left humerus radiographs 07/31/2022 FINDINGS: Bones: No fractures or dislocations. No periosteal reaction. Mild degenerative changes at the wrist and elbow joint. No suspicious bony lesions. Soft tissues: No suspicious soft tissue calcifications or masses. No posterior left elbow joint effu vy. IMPRESSION: No fracture. Reviewed by: Omar Tay MD on 08/14/2022 3:01 PM PDT Approved by: Omar Tay MD on 08/14/2022 3:01 PM PDT Station ID: [id number]
== END 2022-08-13 23:59 | disposition home or self-care (01) ==
LOC: DI.WOS 08:00
PROVIDERS: ATTEND Physician Assistant Surgical
DX: M79.602 Pain in left arm (principal); M19.012 Primary osteoarthritis, left shoulder

== ENCOUNTER 2023-04-18 11:02 | Outpatient (CLI) | payer MEDICAID ==
--- NOTE | 2023-04-18 12:29 | XRAY Report ---
PROCEDURE: Ankle 3 View LT INDICATIONS: ANKLE JOINT PAIN TECHNIQUE: 3 views of the ankle were acquired. COMPARISON: X-ray left ankle, 12/24/2018. FINDINGS: Bones: No fractures or dislocations. Ankle mortise is normally aligned. Mild degenerative joint di sease. Osteopenia. No suspicious bony lesions. Soft tissues: No tibiotalar joint effusion. Achilles tendon appears normal. IMPRESSION: 1. No acute bony abnormality. If clinical symptoms persist, consider 2. Mild osteoarthritis. 3. Osteopenia. Reviewed by: Almaz Kulkarni MD on 04/18/2023 12:28 PM PDT Approved by: Almaz Kulkarni MD on 04/18/2023 12:28 PM PDT Station ID: [id number]
--- NOTE | 2023-04-18 12:40 | XRAY Report ---
PROCEDURE: Foot 3 View LT INDICATIONS: ANKLE JOINT PAIN LEFT TECHNIQUE: 3 views of the foot were acquired. COMPARISON: X-ray left foot, 05/09/2021. FINDINGS: Bones: No fractures or dislocations. No suspicious bony lesions. Mild osteoarthritic changes are no manan. Osteopenia. Soft tissues: No suspicious soft tissue calcifications or masses. IMPRESSION: 1. No fracture or dislocation. 2. Mild osteoarthritis. 3. Osteopenia. Reviewed by: Almaz Kulkarni MD on 04/18/2023 12:39 PM PDT Approved by: Almaz Kulkarni MD on 04/18/2023 12:39 PM PDT Station ID: [id number]
== END 2023-04-18 11:03 | disposition home or self-care (01) ==
LOC: DI.N 11:02
PROVIDERS: ATTEND Registered Nurse
DX: M19.072 Primary osteoarthritis, left ankle and foot (principal); M85.872 Other specified disorders of bone density and structure, left ankle and foot

== ENCOUNTER 2023-05-21 14:55 | Outpatient (CLI) | payer MEDICAID ==
--- NOTE | 2023-05-21 15:48 | XRAY Report ---
PROCEDURE: Shoulder 3 View LT INDICATIONS: ARM PAIN TECHNIQUE: 3 views of the shoulder were acquired. COMPARISON: None. FINDINGS: Bones: No fractures or dislocations. No suspicious bony lesions. Visualized ribs appear intact. Mild to moderate acromioclavicular and minimal to mild glenohumeral narrowing. Soft tissues: No suspicious soft tissue calcifications. IMPRESSION: Acromioclavicular and glenohumeral narrowing. Reviewed by: Ashley Qiu MD on 05/21/2023 3:27 PM PDT Approved by: Ashley Qiu MD on 05/21/2023 3:27 PM PDT Station ID: [id number]
--- NOTE | 2023-05-21 16:50 | XRAY Report ---
PROCEDURE: Elbow 3 View LT INDICATIONS: ARM PAIN TECHNIQUE: 3 views of the elbow were acquired. COMPARISON: None. FINDINGS: Bones: No fractures or dislocations. No suspicious bony lesions. Soft tissues: No effusion. No suspicious soft tissue calcifications or masses. IMPRESSION: No acute bony abnormality. If pain persists with conservative management, consider repeat radiographs in 10-14 days or cross-sectional imaging. Reviewed by: Ramos Kat MD on 05/21/2023 4:49 PM PDT Approved by: Ramos Kat MD on 05/21/2023 4:49 PM PDT Station ID: [id number]
== END 2023-05-21 14:56 | disposition home or self-care (01) ==
LOC: DI 14:55
PROVIDERS: ATTEND Registered Nurse
DX: M79.602 Pain in left arm (principal)

== ENCOUNTER 2024-05-13 13:52 | Outpatient (CLI) | payer MEDICAID ==
--- NOTE | 2024-05-13 16:01 | XRAY Report ---
PROCEDURE: Lumbar Spine 2-3V INDICATIONS: LOW BACK PAIN, ACUTE TECHNIQUE: 2views of the lumbar spine were acquired. COMPARISON: None. FINDINGS: Surgical change: None. Bones: Osteopenia. 5 [id number] vertebrae are present. Anterior compression deformity of the christian perior endplate of L2 with approximately 25% height loss noted. Soft tissues: Overlying bowel gas pattern is normal. Surgical clips project over the abdomen. IMPRESSION: Age-indeterminate compression deformity of the superior endplate of L2 Osteopenia. Reviewed by: North Steven MD on 05/13/2024 4:00 PM PDT Approved by: North Steven MD on 05/13/2024 4:00 PM PDT Station ID: [id number]
--- NOTE | 2024-05-13 16:02 | XRAY Report ---
PROCEDURE: Hips w/Pelvis 2-3V BL INDICATIONS: BILATERAL HIP JOINT PAIN TECHNIQUE: Frontal view of the pelvis and frog-leg lateral view of the left hip. COMPARISON: None. FINDINGS: Bones: Osteopenia. No acute fracture or subluxation of the pelvis seen. The visualized pelvic ring appears intact. Soft tissues: Unremarkable bowel gas pattern. Phlebolith projects over the pelvis. IMPRESSION: No acute pelvic osseous abnormality. Reviewed by: North Steven MD on 05/13/2024 4:01 PM PDT Approved by: North Steven MD on 05/13/2024 4:01 PM PDT Station ID: [id number]
== END 2024-05-13 23:59 | disposition home or self-care (01) ==
LOC: DI.N 13:52
PROVIDERS: ATTEND Physician Assistant Medical
DX: M25.551 Pain in right hip (principal); M47.816 Spondylosis without myelopathy or radiculopathy, lumbar region; M48.56XA Collapsed vertebra, not elsewhere classified, lumbar region, initial encounter for fracture

== ENCOUNTER 2024-05-22 14:56 | Outpatient (CLI) | payer MEDICAID ==
--- NOTE | 2024-05-22 18:55 | MRI Report ---
PROCEDURE: Lumbar Spine WO INDICATIONS: LOW BACK PAIN TECHNIQUE: Multiplanar multisequential MRI images of the lumbar spine were obtained without intraven ous contrast. COMPARISON: 04/03/2018 FINDINGS: Alignment and Curvature: There is normal bony alignment. Bone Marrow: L2 wedge-shaped compression fracture with 50% height loss is new from the prior exam. R etropulsed fracture fragment results in mild central stenosis. Remainder the vertebral body heights a nd alignment is maintained. Spinal Cord: Conus medullaris terminates at the L1 level. Visualized cord demonstrates normal signa l and size. Paraspinal Soft Tissues: Unremarkable perivertebral soft tissues. T12-L1: Normal in appearance. L1-L2: Normal in appearance. L2-L3: Normal in appearance. L3-L4: Mild disc bulge and arthropathy. Mild central stenosis. Moderate right and mild left foramin al stenosis L4-L5: Disc bulge and arthropathy. Mild central stenosis. Mild bilateral foraminal stenosis L5-S1: Arthropathy. No central stenosis. Moderate left and mild right foraminal stenosis IMPRESSION: Multilevel degenerative disc disease and arthropathy results in varying degrees of central and forami nal stenosis including moderate foraminal stenosis L3-L4 and L5-S1 Acute to subacute L2 compression fracture Reviewed by: Rob Singleton MD on 05/22/2024 5:53 PM ANASTACIO Approved by: Rob Singleton MD on 05/22/2024 5:53 PM AKCHERY Station ID: [id number]
== END 2024-05-22 14:57 | disposition home or self-care (01) ==
LOC: DI 14:56
PROVIDERS: ATTEND Family Medicine
DX: M47.816 Spondylosis without myelopathy or radiculopathy, lumbar region (principal); M47.817 Spondylosis without myelopathy or radiculopathy, lumbosacral region; M51.36 Other intervertebral disc degeneration, lumbar region; M48.061 Spinal stenosis, lumbar region without neurogenic claudication

== ENCOUNTER 2024-05-27 12:24 | Outpatient (CLI) | payer MEDICAID ==
[2024-05-27 17:57] LABS: BASOPHILS # (AUTO) 0.1 10^3/uL (0.0-0.1); BASOPHILS % (AUTO) 0.6 %; EOSINOPHILS # (AUTO) 0.1 10^3/uL (0.0-0.7); EOSINOPHILS % (AUTO) 0.7 %; HCT - HEMATOCRIT 40.1 % (37.0-47.0); HGB - HEMOGLOBIN 13.4 g/dL (12.0-16.0); LYMPHOCYTES # (AUTO) 3.2 10^3/uL (1.5-3.5); LYMPHOCYTES % (AUTO) 36.9 %; MEAN CORPUSCULAR HEMOGLOBIN 30.9 pg (27.0-31.0); MEAN CORPUSCULAR HGB CONC 33.4 g/dL (32.0-36.0); MEAN CORPUSCULAR VOLUME 92.4 fL (81.0-99.0); MEAN PLATELET VOLUME 11.5 fL (7.9-10.8); MONOCYTES # (AUTO) 0.4 10^3/uL (0.0-1.0); NEUTROPHILS # (AUTO) 4.8 10^3/uL (1.5-6.6); NEUTROPHILS % (AUTO) 56.4 %; PLT - PLATELET COUNT 273 10^3/uL (130-450); RED BLOOD COUNT 4.34 10^6/uL (4.20-5.40); RED CELL DISTRIBUTION WIDTH 13.7 % (12.0-15.0); WHITE BLOOD COUNT 8.6 x10^3/uL (4.8-10.8)
[2024-05-27 18:18] LABS: ALBUMIN 4.2 g/dL (3.2-5.5); ALBUMIN/GLOBULIN RATIO 1.8 (1.0-2.2); ALKALINE PHOSPHATASE 97 IU/L (42-121); ALT ALANINE AMINOTRANSFERASE 7 IU/L (10-60); AST ASPARTATE AMINOTRANSFERASE 11 IU/L (10-42); BILIRUBIN,TOTAL 0.4 mg/dL (0.2-1.0); BUN - BLOOD UREA NITROGEN 8 mg/dL (6-20); CALCIUM 9.2 mg/dL (8.5-10.3); CARBON DIOXIDE - CO2 26 mmol/L (21-32); CHLORIDE 107 mmol/L (101-111); CHOL/HDL RATIO 7.4 (<4.4); CHOLESTEROL 208 mg/dL; CREATININE 0.6 mg/dL (0.6-1.3); GFR - MDRD 101 (>89); GLUCOSE 69 mg/dL (74-104); HDL CHOLESTEROL 28 mg/dL; LDL CHOLESTEROL,CALCULATED 153 mg/dL; LDL/HDL RATIO 5.5 (<4.4); POTASSIUM 3.2 mmol/L (3.5-4.5); SODIUM 140 mmol/L (135-145); TOTAL PROTEIN 6.6 g/dL (6.4-8.9); TRIGLYCERIDES 135 mg/dL; VLDL CHOLESTEROL 27 mg/dL
[2024-05-27 21:36] LABS: ESTIMATED AVERAGE GLUCOSE 108 mg/dL (70-100); HEMOGLOBIN A1c% 5.4 % (4.27-6.07)
== END 2024-05-27 12:25 | disposition home or self-care (01) ==
LOC: LAB.N 12:24
PROVIDERS: ATTEND Physician Assistant
DX: Z00.00 Encounter for general adult medical examination without abnormal findings (principal); R73.9 Hyperglycemia, unspecified; E78.00 Pure hypercholesterolemia, unspecified
CPT/HCPCS: 36415; 80053; 80061; 83036; 83721; 85025

== ENCOUNTER 2024-06-30 13:44 | Outpatient (CLI) | payer MEDICAID ==
[2024-06-30 18:04] LABS: BASOPHILS # (AUTO) 0.1 10^3/uL (0.0-0.1); BASOPHILS % (AUTO) 0.6 %; EOSINOPHILS # (AUTO) 0.1 10^3/uL (0.0-0.7); EOSINOPHILS % (AUTO) 0.7 %; HCT - HEMATOCRIT 41.2 % (37.0-47.0); HGB - HEMOGLOBIN 13.5 g/dL (12.0-16.0); LYMPHOCYTES # (AUTO) 2.8 10^3/uL (1.5-3.5); LYMPHOCYTES % (AUTO) 33.5 %; MEAN CORPUSCULAR HEMOGLOBIN 30.1 pg (27.0-31.0); MEAN CORPUSCULAR HGB CONC 32.8 g/dL (32.0-36.0); MEAN PLATELET VOLUME 11.9 fL (7.9-10.8); MONOCYTES # (AUTO) 0.5 10^3/uL (0.0-1.0); MONOCYTES % (AUTO) 5.9 %; NEUTROPHILS % (AUTO) 59.2 %; PLT - PLATELET COUNT 217 10^3/uL (130-450); RED BLOOD COUNT 4.48 10^6/uL (4.20-5.40); RED CELL DISTRIBUTION WIDTH 13.4 % (12.0-15.0); WHITE BLOOD COUNT 8.5 x10^3/uL (4.8-10.8)
[2024-06-30 18:33] LABS: CREATININE 0.6 mg/dL (0.6-1.3); POTASSIUM 3.8 mmol/L (3.5-4.5)
== END 2024-06-30 13:45 | disposition home or self-care (01) ==
LOC: LAB.N 13:44
PROVIDERS: ATTEND Orthopaedic Surgery Orthopaedic Surgery of the Spine
DX: S32.020A Wedge compression fracture of second lumbar vertebra, initial encounter for closed fracture (principal)
CPT/HCPCS: 36415; 80048; 85025